=== PATIENT | male | born 1965 | race Caucasian/White ===

== ENCOUNTER 2020-02-17 09:45 | Emergency (ER) | payer OTHER, BC, SELFPAY ==
--- NOTE | ~2020-02-17 | XR_ITS ---
XR knee RT 3V 02/17/2020 11:21 Indication: Right knee pain after twisting injury Procedure: 3 views right knee Comparison: No prior studies for comparison. Findings: There is moderate tricompartmental osteoarthritis of the right knee, most advanced in the m edial joint space. No fracture or traumatic malalignment. No significant joint effusion. No foreign b odies. Impression: 1: Moderate osteoarthritis of the right knee. Reviewed, dictated and finalized at location A. Impression: 1: Moderate osteoarthritis of the right knee.
[2020-02-17 09:57] VITALS: BP 150/86; PULSE 90; RESP 18; TEMP 36.9; O2SAT 99
--- NOTE | 2020-02-17 11:03 | ED.LOWEXIN ---
HPI - Extremity Injury (Lower) General Chief Complaint: Extremity Injury, Lower Stated Complaint: knee injury Time Seen by Provider: 02/17/20 11:01 Source: patient Mode of arrival: ambulatory Limitations: no limitations History of Present Illness HPI Narrative: Patient is a 54-year-old male who presents for evaluation of right knee pain. Patient states that he was picking up a heavy box with ceramic toilets inside of it when he felt acute pain on the inside of his right knee. Pain is dull, aching in nature, worsened with extension. No associated swelling, redness. No numbness. Patient has been ambulatory. Patient states he did not fall. He believes he has a history of meniscal injury in that right knee which is been followed with Dr. Green in the past. Related Data Allergies Allergy/AdvReac Type Severity Reaction Status Date / Time No Known Allergies Allergy Verified 12/04/19 13:30 Review of Systems Review of Systems: Narrative: CONSTITUTIONAL: Denies fever CARDIOVASCULAR: Denies chest pain RESPIRATORY: Denies cough or dyspnea. GASTROINTESTINAL: Denies abdominal pain SKIN: Denies rash MUSCULOSKELETAL: Denies back pain, reports right knee pain NEUROLOGIC: Denies headache [facility] Past Medical History Medical History Annual physical exam Essential (primary) hypertension Lung disease Nocturia Surgical History Surgical History H/O: knee surgery History of laparoscopic cholecystectomy Social History Social History Smoking status: Former smoker Smoking end date: 05/27/93 Alcohol intake: never Substance use: never Substance use type: does not use Gender identity (if verbalized by the patient): Male Exam Narrative: Exam Narrative: GENERAL: Awake, alert, conversant HEAD: Normocephalic, atraumatic. EYES: PERRLA and EOMI. ENT: Nares clear, no rhinorrhea or epistaxis. Mucous membranes moist. NECK: Supple. CHEST: No respiratory distress, breathing even and non labored HEART: Regular rate, sinus rhythm ABDOMEN:Non distended, non tender EXTREMITIES: Normal range of motion. No edema. Patient is able to fully flex and extend the knee without limitation. No effusion identified although body habitus does make evaluation difficult. There is tenderness along the medial aspect of the left knee. No lateral tenderness. No instability. Full range of motion of the ankle without pain or limitation. Intact distal sensation. No edema. Capillary refill less than 3 seconds. SKIN: Warm, dry, no rash. NEURO:No focal deficits. Alert and oriented x3 Course Vital Signs Vital signs: Vital Signs Temperature 36.9 C 02/17/20 09:57 Pulse Rate 90 02/17/20 09:57 Respiratory Rate 18 02/17/20 09:57 Blood Pressure 150/86 H 02/17/20 09:57 Pulse Oximetry 99 02/17/20 09:57 Temperature 36.9 C 02/17/20 09:57 Pulse Rate 90 02/17/20 09:57 Respiratory Rate 18 02/17/20 09:57 Blood Pressure 150/86 H 02/17/20 09:57 Pulse Oximetry 99 02/17/20 09:57 MDM - Extremity Injury (Lower) MDM Narrative Medical decision making narrative: Patient presented for evaluation of right knee pain following lifting a heavy object. At the time of assessment, patient is neurovascularly intact without signs of deformity. He has good active range of motion without limitation. He is ambulatory. No sign of infection with good range of motion, no erythema, no edema. X-ray reveals osteoarthritis but I do suspect a ligamentous injury. Will advise close follow-up with orthopedic surgery, he wishes to continue following with Dr. Green. Differential Diagnosis Differential diagnosis: Likely other (Knee strain, fracture, soft tissue injury) Medical Records Attestation: I reviewed the patient's medical records. Imaging Data Radiologist's impression: ITS Impres
[2020-02-17 12:24] VITALS: BP 138/72; PULSE 78; RESP 20; O2SAT 99
== END 2020-02-17 12:25 | disposition home or self-care (01) ==
PROVIDERS: Emergency Provider Emergency Medicine; PCP Family Medicine
DX: S86.911A Strain of unspecified muscle(s) and tendon(s) at lower leg level, right leg, initial encounter (principal); I10 Essential (primary) hypertension; X50.0XXA Overexertion from strenuous movement or load, initial encounter
CPT/HCPCS: 73562; 99283

== ENCOUNTER 2020-06-16 07:53 | Emergency (ER) | payer BC, SELFPAY ==
[2020-06-16] VITALS (8 sets, daily range): BP systolic 129–181; BP diastolic 64–113; PULSE 79–101; RESP 16–24; TEMP 35.9; O2SAT 94–100
--- NOTE | ~2020-06-16 | CT_ITS ---
EXAMINATION: CT brain wo con EXAM DATE: 06/16/2020 08:44 INDICATION: Syncope. TECHNIQUE: Spiral CT of the head was performed without contrast. Axial, coronal and sagittal images were reviewed. The dose-length product (DLP) for this examination was 605.33 mGy-cm. The exposure w as tailored according to patient size, and iterative reconstruction (ASIR) was used as additional dos e reduction technique. There is no prior study for comparison. FINDINGS: There is no acute intraparenchymal hemorrhage. No evidence of intraparenchymal brain mass lesion. No evidence of acute infarction. There is no mass effect or midline shift. The ventricles are normal in size. There are no extra-axial collections. There are no acute calvarial fractures. T he orbits are unremarkable. Soft tissue is unremarkable. The visualized sinuses and mastoid air jorge ls are well aerated. IMPRESSION: 1. No acute intracranial findings. Reviewed, dictated and finalized at location A. ARDER OPERATOR
--- NOTE | ~2020-06-16 | XR_ITS ---
EXAMINATION: XR shoulder LT min 2V EXAM DATE: 06/16/2020 08:51 INDICATION: Initial encounter following injury, with pain of the left shoulder. TECHNIQUE: The following left shoulder projections obtained: frontal projection with internal rotatio n, frontal projection with external rotation, Grashey, and scapular Y view (4+ views). There is no p rior study for comparison. FINDINGS: No evidence of left shoulder rotator cuff calcific tendinosis. There is mild glenohumeral and acromioclavicular joint primary osteoarthritis. There are no acute fractures or dislocations susana ntified. There is no subcutaneous gas. The soft tissue is unremarkable. There are no radiopaque f oreign bodies. IMPRESSION: 1. XR shoulder LT min 2V exam without acute osseous findings. Reviewed, dictated and finalized at location A. PRESIDENT AND PORTFOLIO MANAGER
--- NOTE | ~2020-06-16 | XR_ITS ---
EXAMINATION: XR chest 1V DATE: 06/16/2020 08:51 INDICATION: Syncope. TECHNIQUE: A single frontal view of the chest was obtained. COMPARISON: Chest 2 views 08/06/2018, chest CT 08/31/2013 FINDINGS: The chest demonstrates clear lungs without pneumonia, pleural effusion, or pneumothorax. Th e heart size is normal. IMPRESSION: 1. No acute cardiopulmonary disease. Reviewed, dictated and finalized at location B. NESS ANALYTICS ANALYST
--- NOTE | ~2020-06-16 | XR_ITS ---
EXAMINATION: XR ankle LT min 3V DATE: 06/16/2020 08:51 INDICATION: Left ankle pain post fall TECHNIQUE: Anteroposterior, oblique, mortise, and lateral views of the left ankle were obtained. COMPARISON: None. FINDINGS: Bone alignment is normal. There is linear sclerosis projecting over the posterior calcaneus at locati on suspicious for a stress or insufficiency fracture. No other lesions suspicious for acute fracture. The profiled joint spaces are relatively preserved. Scattered enthesophytes at the calcaneal inserti on of the Achilles tendon and plantar aponeurosis as well as the dorsal navicular insertion of the ca lcaneonavicular ligament. Ovoid ossicle either loose osteochondral body or heterotopic ossification r elated to old injury dorsal to the neck of the talus. No ankle joint effusion. Soft tissue swelling w ith subcutaneous edema about the left ankle and distal left calf. IMPRESSION: 1. Linear sclerosis projecting across the plantar aspect of the posterior calcaneus. Differential wou ld include stress/insufficiency fracture or artifact related to enthesophyte reviewed and finalized. Correlate for heel pain with weightbearing. Reviewed, dictated and finalized at location A. FIC LINE PAINTER IMPRESSION: 1. Linear sclerosis projecting across the plantar aspect of the posterior calca neus. Differential would include stress/insufficiency fracture or artifact rela ajit to enthesophyte reviewed and finalized. Correlate for heel pain with weight bearing.
--- NOTE | ~2020-06-16 | CT_ITS ---
EXAMINATION: CT ankle LT wo con DATE: 06/16/2020 10:13 INDICATION: Left ankle pain. TECHNIQUE: Computed tomography (CT) of the left ankle was performed without intravenous contrast. Aut omated exposure control and iterative reconstruction technique were employed. The dose-length product was 315.21 mGy-cm. COMPARISON: Left ankle radiographs 06/16/2020 FINDINGS: Bone alignment is normal. There are chip fractures of anterior process of calcaneus. There is a nondisplaced chip fracture of lateral aspect of head of talus. There is mild osteoarthritis of t he ankle joint, subtalar joint, and many of the midfoot joints. There is a punctate calcification in the area of posterior talofibular ligament. There is moderate osteoarthritis of talonavicular joint. There are enthesophytes at the posterior and plantar aspects of calcaneal tuberosity. IMPRESSION: 1. Chip fractures of anterior process of calcaneus and lateral aspect of head of talus. 2. Polyarticular osteoarthritis. Reviewed, dictated and finalized at location B. R MAINTENANCE PERSON IMPRESSION: 1. Chip fractures of anterior process of calcaneus and lateral aspect of head o f talus. 2. Polyarticular osteoarthritis.
--- NOTE | 2020-06-16 08:13 | ECG_ITS ---
Measurements Intervals [place] Rate: 81 P: 22 MO: 153 QRS: -34 QRSD: 112 T: 21 QT: 357 QTc: 416 Interpretive Statements SINUS RHYTHM LEFT AXIS DEVIATION INTRAVENTRICULAR CONDUCTION DELAY BORDERLINE ECG Electronically Signed On 06-16-2020 8:29:38 MOTION PICTURE PROJECTIONIST by Galileo Barrios D.O.
[2020-06-16] MEDS: SODIUM CHLORIDE 0.9% IV 1,000 ML 999 ML IV CONT (08:28)
[2020-06-16 08:37] LABS: Basophils Percent Auto 0.4 % (0.2-1.2); Eosinophils Absolute Auto 0.1 K/mm3 (0-0.3); Eosinophils Percent Auto 1.3 % (0-4.4); Hematocrit 42.6 % (42.0-52.0); Hemoglobin 13.4 g/dL (14.0-18.0); Immature Granulocyte Absolute 0.07 K/mm3 (0.00-0.031); Immature Granulocyte Percent A 0.7 % (0-0.5); Lymphocytes Absolute Auto 0.94 K/mm3 (0.9-3.2); Mean Corpuscular HGB Conc 31.5 g/dl (32-36); Mean Corpuscular Hemoglobin 26.5 pg (26-34); Mean Corpuscular Volume 84.2 fl (80-100); Mean Platelet Volume 12.2 fl (7.4-10.4); Monocytes Absolute Auto 0.9 K/mm3 (0.1-0.6); Monocytes Percent Auto 8.5 % (2.6-8.5); Neutrophils Absolute Auto 8.3 K/mm3 (1.3-6.7); Neutrophils Percent Auto 80.1 % (45.5-73.1); Platelet Count Result 189 k/mm3 (150-375); Red Blood Count 5.06 M/mm3 (4.6-6.20); White Blood Count 10.4 K/mm3 (4.5-10.0)
[2020-06-16 08:48] LABS: Alanine Aminotransferase 29 U/L (4-50); Albumin Level 3.8 g/dL (3.5-5.1); Alkaline Phosphatase 99 U/L (38-126); Anion Gap 3 mmol/L (8-16); Aspartate Amino Transferase 28 U/L (17-59); Bilirubin,Total 0.5 mg/dL (0.2-1.3); Blood Urea Nitrogen 14 mg/dL (9-20); Calcium 8.7 mg/dL (8.4-10.2); Carbon Dioxide 33 mmol/L (22-30); Chloride 102 mmol/L (98-107); Estimated CRCL calculation 138 ml/min; Estimated Glomerular Filt Rate > 60; Glucose 108 mg/dL (75-110); Potassium 3.9 mmol/L (3.4-5.0); Sodium 138 mmol/L (137-145)
[2020-06-16 09:00] LABS: Troponin I < 0.012 ng/mL (0.000-0.034)
[2020-06-16 10:16] LABS: Add Urine Microscopic? NO; Appearance Urine Clear (Clear); Bacteria Urine Trace /hpf; Bilirubin Urine Negative (Negative); Blood Urine Negative (Negative); Color Urine Yellow (Yellow); Glucose Urine UA Negative (Negative); Ketones Urine Negative (Negative); Leukocyte Esterase Ur Negative LEU/UL (Negative); Mucus Urine Rare /lpf; Nitrate Urine Negative (Negative); Protein Urine Negative (Negative); RBC Urine 0-2 /hpf (0-2); Specific Grav Ur 1.015 (1.001-1.035); Squamous Epithelial Cell Urine Rare /hpf (Few); Urobilinogen Urine Negative mg/dL (<2.0); WBC Urine 0-3 /hpf
--- NOTE | 2020-06-16 10:58 | ED.GENADULT ---
HPI - General Adult General Chief complaint: Syncope Stated complaint: Passed Out At Work Time Seen by Provider: 06/16/20 08:00 History of Present Illness HPI narrative: Patient is a 55-year-old gentleman who presents emergency department with chief complaint of syncope. Patient was at work and went to the bathroom was sitting on the toilet having a bowel movement. States that while having a bowel movement the patient woke up on the floor after he had passed out. The patient reports head pain left shoulder pain and left ankle pain. Patient reports pain is worse with movement and improved with rest. complaint: Syncope Related Data Allergies Allergy/AdvReac Type Severity Reaction Status Date / Time No Known Allergies Allergy Verified 05/17/20 14:27 Review of Systems Review of Systems: Narrative: A 10 system review of systems was completed on the patient and is negative except for what is stated in the HPI. Nursing and ancillary documentation was reviewed. [facility] Past Medical History Medical History Acute medial meniscus tear of right knee Annual physical exam Arthritis of knee, right Asthma Essential (primary) hypertension Hypertension Lung disease Nocturia Obesity Right knee injury Urinary frequency Surgical History Surgical History H/O: knee surgery History of laparoscopic cholecystectomy Family History Family History Father Hypertension Mother Hypertension Social History Social History Smoking status: Former smoker Smoking end date: 05/27/94 Alcohol intake: never Substance use: never Substance use type: does not use Gender identity (if verbalized by the patient): Male Exam Narrative: Exam Narrative: GENERAL: Well-appearing, well-nourished, and in no acute distress. HEAD: Normocephalic, there is a contusion of the forehead. EYES: PERRLA and EOMI. ENT: Nares clear, no rhinorrhea or epistaxis. Mucous membranes moist. NECK: Supple. CHEST: Clear to auscultation. No respiratory distress. HEART: Regular rate and rhythm. No murmur heard. Normal peripheral pulses. ABDOMEN: Soft, nontender, nondistended, normal active bowel sounds. EXTREMITIES: Normal range of motion. No edema. There is tenderness to palpation in the left ankle and left shoulder SKIN: Warm, dry, no rash. NEURO: No focal deficits. Alert and oriented x3. PSYCH: Normal mood and affect. Course Course Emergency Course: CT head shows no evidence of acute abnormality. Chest x-ray shows no focal findings. Left shoulder is negative left ankle showed a possible avulsion fracture of the calcaneus. CT scan of the ankle and foot showed a avulsion of the calcaneus and talus. The patient will be placed in a splint and the patient will be discharged to follow-up with orthopedics. Vital Signs Vital signs: Vital Signs Temperature 35.9 C L 06/16/20 08:00 Pulse Rate 91 06/16/20 08:00 Respiratory Rate 16 06/16/20 08:00 Blood Pressure 181/82 H 06/16/20 08:00 Pulse Oximetry 100 06/16/20 08:00 Temperature 35.9 C L 06/16/20 08:00 Pulse Rate 87 06/16/20 09:33 Respiratory Rate 24 H 06/16/20 09:33 Blood Pressure 140/79 06/16/20 09:33 Pulse Oximetry 100 06/16/20 09:33 Medical Decision Making Vital Signs Vital Signs: Vital Signs Temperature 35.9 C L 06/16/20 08:00 Pulse Rate 91 06/16/20 08:00 Respiratory Rate 16 06/16/20 08:00 Blood Pressure 181/82 H 06/16/20 08:00 Pulse Oximetry 100 06/16/20 08:00 Temperature 35.9 C L 06/16/20 08:00 Pulse Rate 87 06/16/20 09:33 Respiratory Rate 24 H 06/16/20 09:33 Blood Pressure 140/79 06/16/20 09:33 Pulse Oximetry 100 06/16/20 09:33 Lab Data Result diagrams: 06/16/20 08:29
--- NOTE | 2020-06-23 08:08 | PC.NURSE ---
LATE ENTRY-AP LOMAS POSTERIOR SHORT LEG OCL PLACED TO L LEG ON 06/16/2020
== END 2020-06-16 13:01 | disposition home or self-care (01) ==
PROVIDERS: Emergency Provider Emergency Medicine; PCP Family Medicine
DX: R55 Syncope and collapse (principal); S92.022A Displaced fracture of anterior process of left calcaneus, initial encounter for closed fracture; S92.125A Nondisplaced fracture of body of left talus, initial encounter for closed fracture; M17.11 Unilateral primary osteoarthritis, right knee; J45.909 Unspecified asthma, uncomplicated; I10 Essential (primary) hypertension; E66.9 Obesity, unspecified; Z68.44 Body mass index [BMI] 60.0-69.9, adult; Z87.891 Personal history of nicotine dependence; M19.072 Primary osteoarthritis, left ankle and foot; I45.9 Conduction disorder, unspecified; W18.12XA Fall from or off toilet with subsequent striking against object, initial encounter
CPT/HCPCS: 29515; 36415; 70450; 71045; 73030; 73610; 73700; 80053; 81003; 82948; 84484; 85025; 93005; 96360; 96361; 99284; J7030

== ENCOUNTER 2020-06-17 10:06 | Emergency (ER) | payer BC, SELFPAY ==
[2020-06-17 10:10] VITALS: BP 165/76; PULSE 98; RESP 18; TEMP 36.7; O2SAT 100
--- NOTE | 2020-06-17 10:49 | ED.GENADULT ---
HPI - General Adult General Chief complaint: Unspecified Stated complaint: OCL Check Time Seen by Provider: 06/17/20 10:26 Source: patient Mode of arrival: ambulatory Limitations: no limitations History of Present Illness HPI narrative: This is a 55-year-old male that presents the emergency department for a new splint. Reports he was seen here yesterday and splint was placed on the left ankle. Reports he has been having trouble with the splint and wanted a new one. Per diagnostic radiologic technologist it looks like patient had spilled something on the splint and there was corn in the splint. It also looks like there may be was not enough padding in the splint. Patient has no other complaints. Denies fever or numbness. Related Data Allergies Allergy/AdvReac Type Severity Reaction Status Date / Time No Known Allergies Allergy Verified 06/17/20 10:35 Review of Systems Review of Systems: Narrative: CONSTITUTIONAL: Denies fever SKIN: Denies rash MUSCULOSKELETAL: Reports joint pain, and myalgia. NEUROLOGIC: Denies numbness All systems reviewed & are unremarkable except as noted in HPI and below PMFSH Past Medical History Medical History Acute medial meniscus tear of right knee Annual physical exam Arthritis of knee, right Asthma Essential (primary) hypertension Hypertension Lung disease Nocturia Obesity Right knee injury Urinary frequency Surgical History Surgical History H/O: knee surgery History of laparoscopic cholecystectomy Family History Family History Father Hypertension Mother Hypertension Social History Social History Smoking status: Former smoker Smoking end date: 05/27/94 Alcohol intake: never Substance use: never Substance use type: does not use Gender identity (if verbalized by the patient): Male Exam Narrative: Exam Narrative: GENERAL: Well-appearing, obese, and in no acute distress. HEAD: Normocephalic, atraumatic. EYES: EOMI. EXTREMITIES: Normal range of motion. No edema or obvious deformity. Normal DP pulses. Normal sensation SKIN: Warm, dry, no rash. NEURO: No focal deficits. Alert and oriented x3. PSYCH: Normal mood and affect Course Vital Signs Vital signs: Vital Signs Temperature 98.0 F 06/17/20 10:10 Pulse Rate 98 06/17/20 10:10 Respiratory Rate 18 06/17/20 10:10 Blood Pressure 165/76 H 06/17/20 10:10 Pulse Oximetry 100 06/17/20 10:10 Temperature 98.0 F 06/17/20 10:10 Pulse Rate 98 06/17/20 10:10 Respiratory Rate 18 06/17/20 10:10 Blood Pressure 165/76 H 06/17/20 10:10 Pulse Oximetry 100 06/17/20 10:10 Procedures Orthopedic Splinting/Casting Injury #1: Splinting/Casting Date: 06/17/20 Splinting/Casting Time: 11:41 Side: left Lower Extremity Injury Location: ankle Lower Extremity Immobilizer: posterior splint Splint: customized in ED OCL: posterior Pre-Procedure Neuro Vascular Exam: normal Post-Procedure Neuro Vascular Exam: normal Other Orthopedic Equipment: crutches Medical Decision Making MDM Narrative Medical decision making narrative: Patient presents to the emergency department to have his splint replaced. Patient apparently had not taken well care of it, did have food in it and a spill noted on it. Also per diagnostic radiologic technologist did look like it needed more padding. Splint was replaced and patient reports it feels much better now. Normal postplacement neurovascular exam. He is to follow-up with orthopedics as scheduled Vital Signs Vital Signs: Vital Signs Temperature 98.0 F 06/17/20 10:10 Pulse Rate 98 06/17/20 10:10 Respiratory Rate 18 06/17/20 10:10 Blood Pressure 165/76 H 06/17/20 10:10 Pulse Oximetry 100 06/17/20 10:10 Temperature 98.0 F 05/28
== END 2020-06-17 12:01 | disposition home or self-care (01) ==
PROVIDERS: Emergency Provider Emergency Medicine; PCP Family Medicine
DX: S92.902D Unspecified fracture of left foot, subsequent encounter for fracture with routine healing (principal); M17.11 Unilateral primary osteoarthritis, right knee; I10 Essential (primary) hypertension; J45.909 Unspecified asthma, uncomplicated; E66.9 Obesity, unspecified; Z68.44 Body mass index [BMI] 60.0-69.9, adult; X58.XXXD Exposure to other specified factors, subsequent encounter
CPT/HCPCS: 29515; 99282

== ENCOUNTER 2022-01-29 10:25 | Emergency (ER) | payer BC, SELFPAY ==
--- NOTE | ~2022-01-29 | CT_ITS ---
EXAMINATION: CT abdomen pelvis w con DATE: 01/29/2022 12:18 INDICATION: Low abdominal pain. Nausea and vomiting. TECHNIQUE: Computed tomography (CT) of the abdomen and pelvis was performed with 100 mL Omnipaque 350 intravenous contrast. Automated exposure control and iterative reconstruction technique were employe d. The dose-length product was 1541.70 mGy-cm. COMPARISON: CT abdomen 12/18/2004 FINDINGS: The visualized portions of the lung bases demonstrate minimal atelectasis. No pleural effus ion. The heart size is normal. No pericardial effusion. The liver and gallbladder are normal. There a re changes of cholecystectomy. The pancreas, adrenal glands, and left kidney are normal. There is a 6 .9 cm cyst in right kidney. The appendix is not visualized. There is an umbilical hernia containing s mall bowel. There is mild fat stranding in the hernia, consistent with inflammation versus scarring. Small bowel is mildly dilated proximal to the hernia. There are no pathologically enlarged lymph node s. There is no free intraperitoneal fluid. There is moderate lumbar spondylosis. IMPRESSION: 1. Umbilical hernia containing small bowel with partial small bowel obstruction. Reviewed, dictated and finalized at location A. IMPRESSION: 1. Umbilical hernia containing small bowel with partial small bowel obstruction .
[2022-01-29 10:32] VITALS: BP 134/92; PULSE 98; RESP 16; TEMP 36.5; O2SAT 99
[2022-01-29 11:00] LABS: Basophils Absolute Auto 0.1 K/mm3 (0.0-0.1); Basophils Percent Auto 0.7 % (0.2-1.2); Eosinophils Absolute Auto 0.1 K/mm3 (0-0.3); Eosinophils Percent Auto 0.6 % (0-4.4); Hematocrit 51.7 % (42.0-52.0); Hemoglobin 16.3 g/dL (14.0-18.0); Immature Granulocyte Absolute 0.05 K/mm3 (0.00-0.031); Immature Granulocyte Percent A 0.4 % (0-0.5); Lymphocytes Absolute Auto 1.87 K/mm3 (0.9-3.2); Lymphocytes Percent Auto 15.4 % (18.3-44.2); Mean Corpuscular HGB Conc 31.5 g/dl (32-36); Mean Corpuscular Volume 85.7 fl (80-100); Mean Platelet Volume 11.7 fl (7.4-10.4); Monocytes Percent Auto 8.1 % (2.6-8.5); Neutrophils Absolute Auto 9.1 K/mm3 (1.3-6.7); Neutrophils Percent Auto 74.8 % (45.5-73.1); Platelet Count Result 241 k/mm3 (150-375); Red Blood Count 6.03 M/mm3 (4.6-6.20); Red Cell Distribution Width 17.9 % (11.5-14.5); White Blood Count 12.1 K/mm3 (4.5-10.0)
--- NOTE | 2022-01-29 11:08 | PC.NURSE ---
Pt unable to provide u/a at this time, will continue to try. Given urinal and call light. Declined straight cath.
[2022-01-29 11:27] LABS: Alanine Aminotransferase 31 U/L (6-50); Albumin Level 4.3 g/dL (3.5-5.1); Alkaline Phosphatase 98 U/L (38-126); Anion Gap 12 mmol/L (8-16); Aspartate Amino Transferase 31 U/L (17-59); Bilirubin,Total 0.9 mg/dL (0.2-1.3); Blood Urea Nitrogen 13 mg/dL (9-20); Carbon Dioxide 22 mmol/L (22-30); Chloride 104 mmol/L (98-107); Estimated CRCL calculation 143 ml/min; Estimated Glomerular Filt Rate > 60; Glucose 141 mg/dL (65-110); Lipase 33 U/L (23-300); Potassium 4.1 mmol/L (3.4-5.0); Sodium 138 mmol/L (137-145)
[2022-01-29] MEDS: SODIUM CHLORIDE 0.9% IV 1,000 ML 999 ML IV CONT (11:51)
[2022-01-29] MEDS: ONDANSETRON INJ 4 MG/2 ML VIAL IV PUSH ×2 (11:53→14:18)
--- NOTE | 2022-01-29 12:47 | ED.ABDPAIN ---
HPI - Abdominal Pain General Chief Complaint: Abdominal Pain Stated Complaint: abd pain Time Seen by Provider: 01/29/22 10:40 Source: patient Mode of arrival: ambulatory Limitations: no limitations History of Present Illness HPI narrative: Patient is a 56-year-old male who presents the ED with report of mid abdominal pain. Patient reports a history of a chronic umbilical hernia and states he developed pain yesterday morning just above his umbilicus. Has not tried anything for pain. Reports nausea and some dry heaving, but no vomiting. Reports an episode of diarrhea yesterday, but has not had a bowel movement since then. No fever, urinary symptoms, back pain. Related Data Allergies Allergy/AdvReac Type Severity Reaction Status Date / Time No Known Allergies Allergy Verified 01/29/22 10:37 Review of Systems Review of Systems: CONSTITUTIONAL: Denies fever, chills, or sweats. CARDIOVASCULAR: Denies chest pain. RESPIRATORY: Denies dyspnea. GASTROINTESTINAL: Reports mid ABD pain, nausea w/ dry heaving, diarrhea. Denies vomiting, rectal bleeding. GENITOURINARY: Denies dysuria or hematuria. MUSCULOSKELETAL: Denies back pain. All systems reviewed & are unremarkable except as noted in HPI and below PMFSH Past Medical History Medical History Acute medial meniscus tear of right knee Annual physical exam Arthritis of knee, right Asthma Essential (primary) hypertension Hypertension Lung disease Nocturia Obesity Right knee injury Sprain of left foot Urinary frequency Surgical History Surgical History H/O: knee surgery History of laparoscopic cholecystectomy Family History Family History Father Hypertension Mother Hypertension Social History Social History Smoking status: Never smoker Smoking end date: 05/27/94 Alcohol intake: never Substance use: never Substance use type: does not use Gender identity (if verbalized by the patient): Male Exam Narrative: GENERAL: Well appearing, morbidly obese, non-toxic, in no acute distress. HEAD: Normocephalic, atraumatic. NECK: Supple. No adenopathy, no masses. RESPIRATORY: Airway patent, respirations nonlabored. Clear to auscultation bilaterally, no rales, rhonchi, wheezing. CARDIOVASCULAR: Regular rate and rhythm without murmurs, rubs, or gallops. Peripheral pulses 2+ and equal bilaterally. ABDOMINAL: Soft, mild tenderness to palpation in mid abdomen, just above umbilicus. Very large almost fist-size umbilical hernia, soft, no erythema or tenderness to palpation of hernia. Hernia sac able to reduce, but does pop back out. Seemingly able to reduce hernia contents, but unable to keep hernia sac reduced. No hepatosplenomegaly. Normoactive BS. MUSCULOSKELETAL: Moves all extremities. Strength/ROM intact without gross deformities. SKIN: Warm, dry, normal color. No rashes. NEURO: A&O X3. Speech clear. Cranial nerves II-XII grossly intact. Steady gait. No ataxic movements. PSYCHIATRIC: Appropriate mood and affect. Normal interaction. Course Consultations Consultation #1: Discussed case w/ Dr. Meneses in ED. D/c home w/ OP f/u. Date: 01/29/22 Vital Signs Vital signs: Vital Signs Temperature 97.7 F 01/29/22 10:32 Pulse Rate 98 01/29/22 10:32 Respiratory Rate 16 01/29/22 10:32 Blood Pressure 134/92 H 01/29/22 10:32 Pulse Oximetry 99 01/29/22 10:32 Temperature 97.7 F 01/29/22 10:32 Pulse Rate 95 01/29/22 14:33 Respiratory Rate 18 01/29/22 14:33 Blood Pressure 113/64 01/29/22 14:33 Pulse Oximetry 98 01/29/22 14:33 MDM - Abdominal Pain MDM Narrative Medical decision making narrative: Patient presented to ED with one day history of mid abdominal pain, history of large umbilical hernia. VSS. Patient w/ la
--- NOTE | 2022-01-29 13:10 | PM.CNGS ---
Assessment and Plan Assessment and plan (1) Incarcerated umbilical hernia: Code(s): K42.0 - Umbilical hernia with obstruction, without gangrene Status: Acute Assessment and Plan: reduced in ED today c immediate relief of symptoms, ok to dc home at this point c light activity restrictions, f/u 1-2 wks to setup urgent repair (2) Small bowel obstruction: Code(s): K56.609 - Unspecified intestinal obstruction, unspecified as to partial versus complete obstruction Status: Acute Assessment and Plan: see above (3) BMI 60.0-69.9, adult: Code(s): Z68.44 - Body mass index [BMI] 60.0-69.9, adult Status: Acute Assessment and Plan: dietary and lifestyle modifications History of Present Illness Consult details Consult date: 01/29/22 Reason for consult: abdominal pain Requesting physician: Maricarmen Dixon PA-C Narrative: The patient is a 56-year-old male presenting to the emergency department with severe periumbilical pain and nausea. The patient has a known umbilical hernia that has become quite large over time. The patient reports he was scheduled for repair at some point, however was told he needed to lose more weight. The patient reports he started getting pain in the periumbilical area yesterday. He reports that the area became hard and swollen. The patient reports some nausea and dry heaving. The patient did have some diarrhea yesterday. Workup, including imaging, is significant for incarcerated umbilical hernia with small bowel obstruction. Review of Systems Constitutional: Constitutional: Reports as per HPI, Denies anorexia, Reports body ache(s), Denies increased appetite, Denies lethargy, Reports poor appetite, Reports weakness, Denies weight gain and Denies weight loss Eyes: Eyes: Reports no additional eye complaints ENT: Reports system reviewed and no additional complaints, except as documented Cardiovascular: Cardiovascular: Reports no additional cardiovascular complaints Respiratory: Respiratory: Reports no additional respiratory complaints Gastrointestinal: Gastrointestinal: Reports as per HPI, Reports abdominal pain, Reports bloating, Reports change in bowel habits, Reports GI cramping, Reports diarrhea, Reports nausea and Denies vomiting Genitourinary: Genitourinary: Reports no additional male genitourinary complaints Musculoskeletal: Musculoskeletal: Reports no additional musculoskeletal complaints Integumentary/Breasts: Skin/Breast: Reports system reviewed and no additional complaints, except as docu Neurologic: Reports system reviewed and no additional complaints, except as documented Psychiatric: Psychiatric: Reports no additional psychiatric complaints Endocrine: Endocrine: Reports no additional endocrine complaints Hematologic/Lymphatic: Hematologic/Lymphatic: Reports no additional hematologic/lymphatic complaints Allergic/Immunologic: Allergic/Immunologic: Reports no additional allergic/immunologic complaints PMFSH Past Medical History Medical History Acute medial meniscus tear of right knee Annual physical exam Arthritis of knee, right Asthma Essential (primary) hypertension Hypertension Lung disease Nocturia Obesity Right knee injury Sprain of left foot Urinary frequency Surgical History Surgical History H/O: knee surgery History of laparoscopic cholecystectomy Family History Family History Father Hypertension Mother Hypertension Social History Social History Smoking status: Never smoker Smoking end date: 05/27/94 Alcohol intake: never Substance use: never Substance use type: does not use Gender identity (if verbalized by the patient): Male Meds Home Medications and Allergies Home Medications
[2022-01-29 13:34] LABS: Appearance Urine Clear (Clear); Bilirubin Urine Negative (Negative); Blood Urine Negative (Negative); Color Urine Yellow (Yellow); Glucose Urine UA Negative (Negative); Ketones Urine Negative (Negative); Leukocyte Esterase Ur Negative LEU/UL (Negative); Nitrate Urine Negative (Negative); Protein Urine Negative (Negative); Urobilinogen Urine 0.2 mg/dL (<2.0); pH Urine 5.5 (5.0-9.0)
[2022-01-29 13:44] LABS: Lactic Acid Reflex 2.1 mmol/L (0.7-2.0)
[2022-01-29 13:53] LABS: Add Urine Microscopic? NO
[2022-01-29] MEDS: MORPHINE SULFATE (*CRX) 4 MG/ML INJ IV PUSH (14:18)
[2022-01-29 14:33] VITALS: BP 113/64; PULSE 95; RESP 18; O2SAT 98
[2022-01-29 16:27] LABS: Reflex Lactic Acid Yes or No Add Lactic
== END 2022-01-29 14:50 | disposition home or self-care (01) ==
PROVIDERS: Physician Assistant; Emergency Provider Emergency Medicine; PCP Family Medicine
DX: K56.600 Partial intestinal obstruction, unspecified as to cause (principal); K42.9 Umbilical hernia without obstruction or gangrene; E66.9 Obesity, unspecified; Z68.44 Body mass index [BMI] 60.0-69.9, adult; J45.909 Unspecified asthma, uncomplicated; I10 Essential (primary) hypertension; J98.4 Other disorders of lung; M17.11 Unilateral primary osteoarthritis, right knee; Z87.891 Personal history of nicotine dependence
CPT/HCPCS: 36415; 74177; 80053; 81003; 83605; 83690; 85025; 96361; 96365; 96375; 96376; 99284; J0131; J2270; J2405; J7030; Q9967

== ENCOUNTER 2022-01-30 10:27 | Emergency (ER) | payer BC, SELFPAY ==
--- NOTE | ~2022-01-30 | CT_ITS ---
EXAMINATION: CT abdomen pelvis w con DATE: 01/30/2022 12:10 INDICATION: Hernia. Nausea and vomiting. TECHNIQUE: Computed tomography (CT) of the abdomen and pelvis was performed with 100 mL Omnipaque 350 intravenous contrast. Automated exposure control and iterative reconstruction technique were employe d. The dose-length product was 1746.03 mGy-cm. COMPARISON: CT abdomen and pelvis 01/29/2022 FINDINGS: The visualized portions of the lung bases demonstrate minimal atelectasis on the left. No p leural effusion. The heart size is normal. No pericardial effusion. There is a small sliding hernia. The liver and spleen are normal. There are changes of cholecystectomy. The pancreas, adrenal glands, and left kidney are normal. There is a 6.7 cm cyst in right kidney. There is an umbilical hernia cont aining small bowel. There is mild fat stranding associated with the hernia. Small bowel is dilated pr oximal to the hernia. The appendix is normal. There are no pathologically enlarged lymph nodes. There is no free intraperitoneal fluid. There is severe lumbar spondylosis. IMPRESSION: 1. Umbilical hernia containing small bowel with partial small bowel obstruction. Reviewed, dictated and finalized at location A. IMPRESSION: 1. Umbilical hernia containing small bowel with partial small bowel obstruction .
[2022-01-30 10:29] VITALS: BP 133/66; PULSE 97; RESP 20; TEMP 36.2; O2SAT 98
--- NOTE | 2022-01-30 11:10 | ED.GENADULT ---
HPI - General Adult General Chief complaint: Nausea/Vomiting/Diarrhea Stated complaint: hernia, vomiting Time Seen by Provider: 01/30/22 10:58 History of Present Illness HPI narrative: 56-year-old male presenting the emergency department for evaluation of increased abdominal pressure with associated nausea and vomiting. Patient did have an incarcerated hernia yesterday but this was reduced by surgery. Patient states he is going to have outpatient surgical repair of the hernia. Patient had been told that if he has worsening nausea he needed to present to the emergency department. Patient states he was having some nausea yesterday with the nausea worsened. Related Data Allergies Allergy/AdvReac Type Severity Reaction Status Date / Time No Known Allergies Allergy Verified 01/29/22 10:37 Review of Systems Review of Systems: CONSTITUTIONAL: Denies fever, chills, or sweats. EYES: Denies visual changes, redness, or discharge. ENT: Denies rhinorrhea, congestion, sore throat, or otalgia. CARDIOVASCULAR: Denies chest pain, palpitations, or edema. RESPIRATORY: Denies cough or dyspnea. GASTROINTESTINAL: See HPI GENITOURINARY: Denies dysuria or hematuria. SKIN: Denies rash or itching. MUSCULOSKELETAL: Denies back pain, joint pain, or myalgia. NEUROLOGIC: Denies headache, numbness, or weakness. PMFSH Past Medical History Medical History Acute medial meniscus tear of right knee Annual physical exam Arthritis of knee, right Asthma Essential (primary) hypertension Hypertension Lung disease Nocturia Obesity Right knee injury Sprain of left foot Urinary frequency Surgical History Surgical History H/O: knee surgery History of laparoscopic cholecystectomy Family History Family History Father Hypertension Mother Hypertension Social History Social History Smoking status: Never smoker Smoking end date: 05/27/94 Alcohol intake: never Substance use: never Substance use type: does not use Gender identity (if verbalized by the patient): Male Exam Narrative: APPEARANCE: Well appearing, no pain, no distress, well-nourished. HEAD: normocephalic, atraumatic. EYES: PERRLA/EOMI, conjunctivae clear. NOSE: Normal no drainage NECK: Supple. No adenopathy, no masses. RESPIRATORY: Airway patent, respirations nonlabored. Clear to auscultation bilaterally, no rales, rhonchi, wheezing. CARDIOVASCULAR: Regular rate and rhythm without murmurs rubs or gallops. ABDOMINAL: Reproducible umbilical wall hernia. Not incarcerated, no overlying erythema. Minimal tenderness to palpation. MUSCULOSKELETAL: Moves all extremities. Strength/ROM intact, No edema, No calf tenderness. NEURO: Alert. Cranial nerves II through XII intact. Grossly intact SKIN: Warm, dry. Normal Color Course Course Emergency Course: Patient's hernia is not incarcerated but does need constant pressure to stay reduced. CT results were discussed with Dr. Hanson who is on for surgery. He was comfortable with the plan for placement of an abdominal binder and patient still having close follow-up with surgery as outpatient. Hernia was reduced and stayed reduced with the presence of the abdominal wall binder. Patient states he did feel improved with the binder. Patient was updated on use of the binder at home and on the importance of close follow-up with surgery as outpatient. Patient was also educated on reasons to return to the emergency department. Vital Signs Vital signs: Vital Signs Temperature 97.2 F L 01/30/22 10:29 Pulse Rate 97 01/30/22 10:29 Respiratory Rate 20 01/30/22 10:29 Blood Pressure 133/66 01/30/22 10:29 Pulse Oximetry 98 01/30/22 10:29 Oxygen Delivery Room Air 01/30/22 10:29 Temperature 97.2 F L 09
[2022-01-30 11:18] LABS: Basophils Absolute Auto 0.1 K/mm3 (0.0-0.1); Basophils Percent Auto 0.4 % (0.2-1.2); Eosinophils Percent Auto 0.3 % (0-4.4); Hematocrit 48.6 % (42.0-52.0); Hemoglobin 15.2 g/dL (14.0-18.0); Immature Granulocyte Absolute 0.05 K/mm3 (0.00-0.031); Immature Granulocyte Percent A 0.4 % (0-0.5); Lymphocytes Absolute Auto 0.94 K/mm3 (0.9-3.2); Mean Corpuscular HGB Conc 31.3 g/dl (32-36); Mean Corpuscular Hemoglobin 26.6 pg (26-34); Mean Corpuscular Volume 85.1 fl (80-100); Mean Platelet Volume 11.5 fl (7.4-10.4); Monocytes Absolute Auto 1.1 K/mm3 (0.1-0.6); Neutrophils Absolute Auto 9.6 K/mm3 (1.3-6.7); Neutrophils Percent Auto 81.9 % (45.5-73.1); Platelet Count Result 200 k/mm3 (150-375); Red Blood Count 5.71 M/mm3 (4.6-6.20); Red Cell Distribution Width 18.1 % (11.5-14.5); White Blood Count 11.8 K/mm3 (4.5-10.0)
[2022-01-30 11:28] LABS: Alanine Aminotransferase 25 U/L (6-50); Albumin Level 4.3 g/dL (3.5-5.1); Alkaline Phosphatase 104 U/L (38-126); Anion Gap 16 mmol/L (8-16); Aspartate Amino Transferase 23 U/L (17-59); Bilirubin,Total 0.8 mg/dL (0.2-1.3); Blood Urea Nitrogen 14 mg/dL (9-20); Carbon Dioxide 25 mmol/L (22-30); Chloride 98 mmol/L (98-107); Estimated CRCL calculation 159 ml/min; Estimated Glomerular Filt Rate > 60; Glucose 142 mg/dL (65-110); Lipase 27 U/L (23-300); Sodium 139 mmol/L (137-145)
--- NOTE | 2022-01-30 11:45 | PC.NURSE ---
Patient in radiology
[2022-01-30] MEDS: ONDANSETRON INJ 4 MG/2 ML VIAL IV PUSH ×2 (12:34→13:52)
[2022-01-30 12:45] VITALS: BP 112/79; PULSE 89; RESP 18; O2SAT 98
[2022-01-30 12:52] LABS: Lactic Acid Reflex 2.4 mmol/L (0.7-2.0)
[2022-01-30 15:35] LABS: Reflex Lactic Acid Yes or No Add Lactic
== END 2022-01-30 14:08 | disposition home or self-care (01) ==
PROVIDERS: Emergency Provider Emergency Medicine; PCP Family Medicine
DX: K42.9 Umbilical hernia without obstruction or gangrene (principal); I10 Essential (primary) hypertension; J45.909 Unspecified asthma, uncomplicated; J98.4 Other disorders of lung; M17.11 Unilateral primary osteoarthritis, right knee; Z87.891 Personal history of nicotine dependence
CPT/HCPCS: 36415; 74177; 80053; 83605; 83690; 85025; 96374; 96375; 99284; J2405; Q9967

== ENCOUNTER 2022-02-23 08:02 | Outpatient (CLI) | payer BC, SELFPAY ==
--- NOTE | 2022-02-23 08:07 | ECG_ITS ---
Measurements Intervals [place] Rate: 88 P: MI: 0 QRS: -19 QRSD: 100 T: 5 QT: 390 QTc: 472 Interpretive Statements SINUS RHYTHM VENTRICULAR PREMATURE COMPLEX AND FREQUENT ATRIAL PREMATURE COMPLEXES LOW QRS VOLTAGE IN PRECORDIAL LEADS BORDERLINE T WAVE ABNORMALITY- INFERIOR LEADS BASELINE ARTIFACT- I, III, AVR, AVL, AVF, V4-V6 ABNORMAL ECG COMPARED TO ECG 06/16/2020 08:08:11 VENTRICULAR PREMATURE COMPLEX AND FREQUENT ATRIAL PREMATURE COMPLEXES NOW PRESENT Electronically Signed On 02-23-2022 9:50:31 CDT by Galileo Barrios D.O.
== END 2022-02-23 08:03 | disposition home or self-care (01) ==
PROVIDERS: PCP Family Medicine; Visit Provider Surgery
DX: Z01.818 Encounter for other preprocedural examination (principal); I10 Essential (primary) hypertension; K42.9 Umbilical hernia without obstruction or gangrene; R94.31 Abnormal electrocardiogram [ECG] [EKG]
CPT/HCPCS: 36415; 86850; 86900; 86901; 93005

== ENCOUNTER 2022-03-29 08:24 | Outpatient (CLI) | payer BC, SELFPAY ==
--- NOTE | 2022-03-29 08:35 | EST_ITS ---
Patient Info Name: Saran Pretty Age: 57 years : 1965 Gender: Male Ht: 69 in Wt: 450 lbs BSA: 3.29 m2 HR: 78 bpm BP: 121 / 82 mmHg Heart Rhythm: Sinus Rhythm Exam Date: 03/29/2022 10:47 AM Exam Location: [facility] Stress Patient Status: Outpatient Admit Date: 03/29/2022 Staff Ordering Physician: Galileo Barrios DO Attending Provider: Galileo Barrios DO Exercise Technologist: Peg Llanes CT Exercise Physician: Galileo Barrios DO Exam Type: CA stress test treadmill Study Info Indications Z01.810 - Encounter for preprocedural cardiovascular examination R06.00 - Dyspnea, unspecified A treadmill exercise stress test was performed. Summary 1. 1. Negative Gagandeep exercise stress test for ischemic ST changes by ECG criteria. 2. 2. Poor functional capacity, achieving 4.7 METs of workload. 3. 3. Baseline hypertension with hypertensive response to exercise. 4. 4. Appropriate HR response to exercise. 5. 4. Appropriate HR recovery at 1 minute post exercise. 6. 5. No imaging with stress testing. 7. 6. Patient informed of the above results. Protocol: Gagandeep Stress ECG Details Stage: REST Duration (min): 3 min : 29 sec Speed (mph): 0.0 Grade (%): 0 HR (bpm): 79 SBP (mmHg): 170 DBP (mmHg): 51 METS: --- Stage: REST Duration (min): 8 min : 49 sec Speed (mph): 0.0 Grade (%): 0 HR (bpm): 85 SBP (mmHg): 170 DBP (mmHg): 51 METS: --- Stage: STAGE 1 Duration (min): 1 min : 0 sec Speed (mph): 1.7 Grade (%): 10 HR (bpm): 130 SBP (mmHg): 170 DBP (mmHg): 51 METS: --- Stage: STAGE 1 Duration (min): 2 min : 0 sec Speed (mph): 1.7 Grade (%): 10 HR (bpm): 138 SBP (mmHg): 170 DBP (mmHg): 51 METS: --- Stage: STAGE 1 Duration (min): 2 min : 56 sec Speed (mph): 1.7 Grade (%): 10 HR (bpm): 146 SBP (mmHg): 249 DBP (mmHg): 49 METS: --- Stage: RECOVERY Duration (min): 0 min : 4 sec Speed (mph): 1.5 Grade (%): 0 HR (bpm): 138 SBP (mmHg): 249 DBP (mmHg): 49 METS: --- Stage: RECOVERY Duration (min): 1 min : 4 sec Speed (mph): 0.0 Grade (%): 0 HR (bpm): 130 SBP (mmHg): 249 DBP (mmHg): 49 METS: --- Stage: RECOVERY Duration (min): 2 min : 4 sec Speed (mph): 0.0 Grade (%): 0 HR (bpm): 106 SBP (mmHg): 249 DBP (mmHg): 49 METS: --- Stage: RECOVERY Duration (min): 3 min : 4 sec Speed (mph): 0.0 Grade (%): 0 HR (bpm): 98 SBP (mmHg): 246 DBP (mmHg): 57 METS: --- Stage: RECOVERY Duration (min): 4 min : 4 sec Speed (mph): 0.0 Grade (%): 0 HR (bpm): 98 SBP (mmHg): 246 DBP (mmHg): 57 METS: --- Stage: RECOVERY Duration (min): 5 min : 4 sec Speed (mph): 0.0 Grade (%): 0 HR (bpm): 97 SBP (mmHg): 259 DBP (mmHg): 140 METS: --- Stage: RECOVERY Duration (min): 6 min : 4 sec Speed (mph): 0.0
[2022-03-29] MEDS: PERFLUTREN LIPID MICROSPHERES 1.5 ML VIAL DILUTED TO 10 ML TOTAL VOLUME IV PUSH (10:10)
--- NOTE | 2022-03-29 10:12 | ECHO_ITS ---
Patient Info Name: Saran Pretty Age: 57 years : 1965 Gender: Male Ht: 69 in Wt: 450 lbs BSA: 3.29 m2 HR: 78 bpm BP: 136 / 91 mmHg Technical Quality: Poor Exam Date: 03/29/2022 9:25 AM Exam Location: [facility] Patient Status: Outpatient Admit Date: 03/29/2022 Staff Ordering Physician: Galileo Barrios DO Non Destructive Testing Technician: Mayda England RDCS Attending Provider: Galileo Barrios DO Referring Physician: Denis HUSSEIN; Exam Type: CA echo dop color flow w con Study Info Indications - dyspnea Complete two-dimensional, color flow and Doppler transthoracic echocardiogram is performed with contrast to opacify the left ventricle and to improve the deliniation of the left ventricle endocardial borders. Contrast/Agitated Saline Contrast/Ag. Saline: Definity Amount: 3.00 ml Administered By: Mayda England [facility] Existing IV Access: No New IV Access: Right Site Condition: IV removed Reason for Poor Study: patient body habitus Summary 1. Technically suboptimal study due to poor sonographic images. 2. Definity contrast administered improved wall motion interpretation. 3. Left ventricular chamber dimension is normal. 4. Left ventricular systolic function is normal, estimated at 60-65%. 5. The left ventricular diastolic function is grade I diastolic dysfunction. 6. E/e' 8 is minimally elevated. 7. There is mild aortic valve sclerosis. 8. No pulmonary hypertension, estimated pulmonary arterial systolic pressure is 38 mmHg. Left Ventricle Technically suboptimal study due to poor sonographic images. Definity contrast administered improved wall motion interpretation. E/e' 8 is minimally elevated. Left ventricular chamber dimension is normal. Left ventricular systolic function is normal, estimated at 60-65%. The left ventricular diastolic function is grade I diastolic dysfunction. Right Ventricle Right ventricular chamber dimension is not well visualized. Left Atria Left atrial chamber dimension is normal. Right Atria Right atrial chamber dimension is not well visualized. Aortic Valve The aortic valve is trileaflet. There is mild aortic valve sclerosis. There is no aortic valve stenosis. There is no aortic valve regurgitation. Pulmonic Valve There is no pulmonic regurgitation. Mitral Valve There is no mitral valve stenosis. There is no mitral valve regurgitation. Tricuspid Valve There is no tricuspid valve regurgitation. No pulmonary hypertension, estimated pulmonary arterial systolic pressure is 38 mmHg. Pericardium/Pleural There is no pericardial effusion. Inferior Vena Cava Inferior vena cava is not well visualized. Aorta The aortic root size at the sinus of Valsalva is normal. Left Ventricular Outflow Tract Name Value Normal LVOT 2D LVOT Diameter 2.16 cm LVOT Doppler LVOT Peak Gradient 5 mmHg LVOT Mean Gradient 3 mmHg LVOT VTI 20.65 cm LVOT VTI/AV VTI Ratio 0.64 LVOT Stroke Volum
== END 2022-03-29 08:25 | disposition home or self-care (01) ==
LOC: ANHCARD 08:25
PROVIDERS: PCP Family Medicine; Visit Provider Internal Medicine Cardiovascular Disease
DX: R06.09 Other forms of dyspnea (principal); I35.8 Other nonrheumatic aortic valve disorders
CPT/HCPCS: 93017; C8929; Q9957

== ENCOUNTER 2022-04-30 08:59 | Outpatient (CLI) | payer BC, SELFPAY ==
[2022-04-30 09:46] LABS: Anion Gap 6 mmol/L (8-16); Blood Urea Nitrogen 15 mg/dL (9-20); Calcium 8.4 mg/dL (8.4-10.2); Carbon Dioxide 26 mmol/L (22-30); Chloride 109 mmol/L (98-107); Estimated Glomerular Filt Rate > 60; Glucose 110 mg/dL (65-110); Potassium 4.1 mmol/L (3.4-5.0); Sodium 141 mmol/L (137-145)
== END 2022-04-30 09:00 | disposition home or self-care (01) ==
PROVIDERS: Anesthesiology; PCP Family Medicine; Visit Provider Surgery
DX: Z51.81 Encounter for therapeutic drug level monitoring (principal); Z79.899 Other long term (current) drug therapy; K42.0 Umbilical hernia with obstruction, without gangrene
CPT/HCPCS: 36415; 80048; 86850; 86900; 86901

== ENCOUNTER 2022-05-10 00:40 | Day surgery (SDC) | payer BC, SELFPAY ==
[2022-02-19 14:22] VITALS: BMI 64.7
--- NOTE | 2022-02-19 14:31 | PC.NURSE ---
Report to the Outpatient Waiting Room, entrance under the green pavilion located off [facility], at time 12:00 on date 02/26/22. OR Time: 2:00. Time changes happen often and if your time is changed the preop area will call you the afternoon before. - You and your visitor will be asked to self-screen and do not enter if you have any COVID symptoms. - Only one visitor and NO children visitors are allowed at this time. - The patient visitor is requested to leave or wait in car when not with patient due to restrictions. - A mask is required within the hospital. Patients may have clear liquids (water, carbonated beverages, clear teas, apple juice) until 3 hours prior to surgery (11:00) with a maximum of 20 ounces. - No food from midnight until time of surgery Take the following medications with a SIP of water the morning of surgery: NONE Medications to discontinue per physician: N/A Date to take last dose: N/A Please no make-up, nail azeri, hairspray, perfume, deodorant, or body powder the day of surgery. No jewelry (including any body piercings) or valuables the day of surgery, leave them at home. Please take a shower or bath the night before, or the morning of, surgery with an antibacterial soap (HIBICLENS). Wear comfortable, loose fitting clothing. - Jewelry must be removed prior to entering the operating room. Rings and piercings that are not removed may be cut off. - The hospital will not accept responsibility for valuables. - Please leave all valuables, including medications, at home the day of surgery. If you are going home after surgery, a licensed tow truck driver must drive you home. - NO public transportation without another adult. - We recommend that an adult stay with you for 24 hours following discharge. - We also recommend that you do not drive, make important decision, drink alcoholic beverages, or take any drugs that were not prescribed by your health care provider for at least 24 hours after your discharge time. Follow any additional instructions given to you from your surgeon. If you or anyone in your household have experienced Covid symptoms in the past week, please notify your surgeon or the nurse liaison at the phone number below for possible testing. Telephone instructions given to PT - ANIYAH VILLAGOMEZ and asked if any additional questions and then verbalized understanding. Patient advised to call surgeon office or pre surgery nurse liaison [phone] if any additional questions.
--- NOTE | 2022-04-26 13:09 | PC.NURSE ---
PRE-OP INSTRUCTIONS, PLEASE READ CAREFULLY Report to the Outpatient Waiting Room, entrance under the green pavilion located off [facility], at time _1000_ on date _05/10/22_. Planned Procedure Time: _1200_. Time changes happen often and if your time is changed the preop area will call you the afternoon before. - You and your visitor will be asked to self-screen and do not enter if you have any COVID symptoms. - Only one visitor is requested with a max of two and NO children visitors are allowed at this time. - The patient visitor may be requested to leave or wait in car when not with patient due to distancing restrictions. - A mask is optional within the hospital. Patients may have clear liquids (water, carbonated beverages, clear teas, apple juice) until 3 hours prior to surgery (0900 AM) with a maximum of 20 ounces. - No food from midnight until time of surgery Take the following medications with a SIP of water the morning of surgery: NONE Medications to discontinue per physician __N/A__, Date to take last dose Please no make-up, nail tuvaluan, hairspray, perfume, deodorant, or body powder the day of surgery. No jewelry (including any body piercings) or valuables the day of surgery, leave them at home. Please take a shower or bath the night before, or the morning of, surgery with an antibacterial soap. Wear comfortable, loose fitting clothing. - Jewelry must be removed prior to entering the operating room. Rings and piercings that are not removed may be cut off. - The hospital will not accept responsibility for valuables. - Please leave all valuables, including medications, at home the day of surgery. If you are going home after surgery, a licensed services delivery driver must drive you home. - NO public transportation without another adult if you receive anesthesia. - We recommend that an adult stay with you for 24 hours following discharge. - We also recommend that you do not drive, make important decision, drink alcoholic beverages, or take any drugs that were not prescribed by your health care provider for at least 24 hours after your discharge time. Follow any additional instructions given to you from your surgeon. SILVINA SHOWER AM OF SURGERY If you or anyone in your household have experienced Covid symptoms in the past week, please notify your surgeon or the nurse liaison at the phone number below for possible testing. Telephone instructions given to ___PT and asked if any additional questions and then verbalized understanding. Patient advised to call surgeon office or pre surgery nurse liaison [phone] if any additional questions.
[2022-04-26 13:12] VITALS: BMI 64.7
[2022-05-10] VITALS (17 sets, daily range): BP systolic 116–174; BP diastolic 65–99; PULSE 61–92; RESP 16–20; TEMP 36.1–36.9; O2SAT 90–100; BMI 67.1
[2022-05-10] MEDS: ACETAMINOPHEN 500 MG TABLET 1000 MG PO (10:36)
[2022-05-10] MEDS: LACTATED RINGERS 1,000 ML 30 ML IV CONT ×2 (10:45→15:17)
[2022-05-10] MEDS: KETOROLAC 15 MG/ML VIAL (*BKC) IV PUSH (10:48)
--- NOTE | 2022-05-10 10:49 | SUR.PREOP ---
1049 noted reddened area to panus inflamed no drainage. pt states applies ointment at times.
--- NOTE | 2022-05-10 11:04 | WPDHPUPDATE1 ---
History and Physical Update Update Date/Time: 05/10/22 11:04 History and Physical has been reviewed, including an updated exam of the patient. There are NO changes in the patient's condition. Risks, benefits, and alternatives have been discussed and questions answered. Patient agrees to proceed with procedure.
--- NOTE | 2022-05-10 11:05 | WPDANESEPPF ---
Anes - Initial Pre Proc Eval Procedure: Operation Date: 05/10/22 12:00 Proposed Procedures p Robotic Assisted Incarcerated Umbilical Hernia Repair with Mesh - Ana Meneses MD Date/Time: 05/10/22 11:05 Surgeon: Ana Meneses MD Pre Op Diagnosis: incarc umbilical hernia Patient Data Age: 57 Gender: M Height: 1.77 m Weight: 206 kg Last Vital Signs Temp 98.4 F 05/10/22 10:14 Pulse 82 05/10/22 10:14 Resp 16 05/10/22 10:14 BP 174/86 H 05/10/22 10:14 Pulse Ox 98 05/10/22 10:14 O2 Del Method Room Air 05/10/22 10:14 Allergies Allergy/AdvReac Type Severity Reaction Status Date / Time No Known Allergies Allergy Verified 05/10/22 10:32 Home Medications Medication Instructions Recorded Confirmed Type hydrochlorothiazide 12.5 mg tablet 12.5 mg PO DAILY #90 tabs 05/07/22 05/10/22 Rx lisinopril 40 mg tablet 40 mg PO DAILY #90 tabs 05/10/22 05/10/22 Rx Patient hx anesthesia problems: none Family hx anesthesia problems: none Results Review: All pre-operative results and documents have been reviewed as part of the pre-operative evaluation. [facility] Past Medical History Medical History Acute medial meniscus tear of right knee Annual physical exam Arthritis of knee, right Asthma Essential (primary) hypertension Hypertension Lung disease Nocturia Obesity Right knee injury Sprain of left foot Urinary frequency Surgical History Surgical History H/O: knee surgery History of laparoscopic cholecystectomy Family History Family History Father Hypertension Mother Hypertension Social History Social History Smoking packs per day: 1 Smoking cigarettes per day: 20.0 Years smoked: 3 Smoking pack-years: 3.00 Smoking status: Former smoker Tobacco type: cigarettes Smoking end date: 05/27/94 Alcohol intake: never Substance use: never Substance use type: does not use Living arrangements: with family Gender identity (if verbalized by the patient): Male Spiritual care concerns: No Anes - Eval Final PreProcedure Day of Procedure 05/10/22 11:05 Patient weight: super morbidly obese (super super morbidly obesity) Heart: regular rate and rhythm Lungs: clear to auscultation Airway: Mallampati scale class IV Neurological: alert and oriented Last oral intake: >/= 8 hours ASA classification: IV Emergent: no Anesthetic plan: proceed Anesthesia type and monitoring: general ETT (have glidescope availabe for intubation) and standard monitoring Results Review: All pre-operative results and documents have been reviewed as part of the pre-operative evaluation. I explained to the patient the possibility of cancelling the procedure if we had problems securing the airway and even ventilating after establishing an airway. Spoke with Dr Meneses as well and he understands as well potential for ventilation problems. . Informed Consent: The patient's anesthetic plan and its attendant risks and benefits were discussed with the patient/family/POA. Questions were solicited and answers provided to the satisfaction of the patient/family/POA.
--- NOTE | 2022-05-10 11:05 | PM.IMHP ---
H&P: HPI History of Present Illness Date/Time: 05/10/22 11:05 Chief Complaint: incarcerated umbilical hernia Narrative: Saran is a 56 y/o male who presents to the office following recent ED evalatuion for an umbilical hernia. Patient had presented to [facility] ED on 01/29/22 for evaluation abdominal pain. Patient was found to have an incarcerated hernia which was reduced while in the ED. Patient returns on 01/30/22 with complaints of increased abdominal pressure with associated nausea and vomiting.?Patient was given an abdominal binder and Zofran for nausea. CT abd/pelvis w contrast on 01/30/22 revealed an umbilical hernia containing small bowel with partial small bowel obstruction. Patient states he is feeling much better since being in the ED, he is not experiencing anymore pain. Review of Systems Review of Systems: All systems reviewed & are unremarkable except as noted in HPI and below PMFSH Past Medical History Medical History Acute medial meniscus tear of right knee Annual physical exam Arthritis of knee, right Asthma Essential (primary) hypertension Hypertension Lung disease Nocturia Obesity Right knee injury Sprain of left foot Urinary frequency Surgical History Surgical History H/O: knee surgery History of laparoscopic cholecystectomy Family History Family History Father Hypertension Mother Hypertension Social History Social History Smoking packs per day: 1 Smoking cigarettes per day: 20.0 Years smoked: 3 Smoking pack-years: 3.00 Smoking status: Former smoker Tobacco type: cigarettes Smoking end date: 05/27/94 Alcohol intake: never Substance use: never Substance use type: does not use Living arrangements: with family Gender identity (if verbalized by the patient): Male Spiritual care concerns: No Meds Home Medications and Allergies Home Medications Medication Instructions Recorded Confirmed Type hydrochlorothiazide 12.5 mg tablet 12.5 mg PO DAILY #90 tabs 05/07/22 05/10/22 Rx lisinopril 40 mg tablet 40 mg PO DAILY #90 tabs 05/10/22 05/10/22 Rx Allergies Allergy/AdvReac Type Severity Reaction Status Date / Time No Known Allergies Allergy Verified 05/10/22 10:32 Vital Signs Vital Signs - 24 hr 05/10/22 10:14 Temperature 36.9 C Pulse Rate 82 Respiratory Rate 16 Blood Pressure 174/86 H Pulse Oximetry 98 Oxygen Delivery Room Air Exam Const: General: cooperative, comfortable, no acute distress and obese Resp: Auscultation: clear to auscultation bilaterally Cardio: Rate: regular rate Rhythm: regular rhythm GI: Inspection: normal to inspection, distended and visible herniation GI Palp: Yes abdominal tenderness, Yes Soft to palpation, Yes Tenderness to palpation present (GI), No Guarding due to palpation present (GI), No Rigid due to palpation and Yes Hernia present Other: large incarcerated umbilical hernia Assessment and Plan Assessment and plan (1) Incarcerated umbilical hernia: Code(s): K42.0 - Umbilical hernia with obstruction, without gangrene Status: Acute Assessment and Plan: has been medically and cardiac cleared, will setup for robotic assisted repair c mesh
--- NOTE | 2022-05-10 12:13 | SUR.PREOP ---
1130 dr fox aware of redness to panus excoriated.
[2022-05-10] MEDS: ceFAZolin 3 GM/D5W 100 ML 100 ML IVPB (12:20)
[2022-05-10] MEDS: BUPIVACAINE/EPINEPHRINE 0.5% 10 ML VIAL 30 ML INFILTRATE (12:59)
--- NOTE | 2022-05-10 14:51 | P.OP_ITS ---
Procedure Note - Detailed Date of Procedure 05/10/22 Pre-op Diagnosis Incarcerated periumbilical incisional hernia Post-op Diagnosis Same Procedure Performed Robotic assisted repair incarcerated periumbilical incisional hernia with mesh Surgeon Ana Meneses MD Anesthesia General Indications 57-year-old male presenting with small-bowel obstruction secondary to incarcerated periumbilical incisional hernia. Patient initially was able to have reduction of hernia the and has been set up for interval repair at this time. Findings incarcerated periumbilical incisional hernia measuring approximately 4 cm with noted loop of small intestine Description of Procedure The patient was taken the operating room placed in the supine position. After adequate induction of general anesthesia, the patient was prepped and draped in normal sterile fashion. A time-out was then done to verify the patient's identity as well as the procedure being performed. I began by making a 5 mm incision in the left upper quadrant. Through this, a Veress needle was placed into the peritoneal cavity and CO2 gas was insufflated. After adequate pneumoperitoneum was achieved, a 5 mm trocar was placed through this incision. I then placed the laparoscope through this trocar site and under direct visualization I placed a 8 mm port in the left mid abdomen as well as an additional 8 mm port in the left lower abdomen. I then moved the camera to the lower port and replaced the 5 mm port with a 12 mm airport. The robot was then docked to the 3 port sites. I then went to the robotic console. I began by identifying the hernia. A moderate-sized incarcerated hernia was noted in the periumbilical region. Using graspers, I was able to reduce this hernia. The hernia was noted to contain a large amount of preperitoneal fat and omentum, as well as a loop of small intestine. Once reduced, I also reduced and dissected out the hernia sac. I then closed the approximately 4 cm defect with 0 strata fix suture. I then placed a 15x10 [address] mesh into the abdominal cavity. The positional stitch was placed in the middle of the mesh and brought up centering the mesh over the defect. Once this was done, I used 2 0 V lock suture x 2 to circumferentially suture the mesh to the abdominal. Once the mesh was completely sutured in, I was happy with our tension-free repair. The mesh was noted to have good overlap of the defect. I then removed the positioning device. At this point, the robot was undocked and all ports were removed. I then closed the 12 mm port site with an 0 Vicryl [id number] sut ure at the fascial level. All port sites were then closed with 4 O Monocryl subcuticular suture. The patient tolerated the procedure well, is extubated in the operating room postoperative, and transferred to the recovery room in stable condition. Implants 15x10 cm [address] mesh Estimated Blood Loss 25 Drains No Packing No Pathology None sent Complications No immediate complications Condition Stable Disposition PACU [facility] Billing Surgery - Charge Forward: Surgery Billing
[2022-05-10] MEDS: fentaNYL CITRATE INJ (*CRX) 100 MCG/2 ML VIAL 25 MCG IV PUSH ×4 (15:40→16:27)
[2022-05-10] MEDS: oxyCODONE HCL (*CRX) 5 MG TAB IR PO (16:53)
--- NOTE | 2022-05-10 17:09 | SUR.PHASEII ---
Dr. Meneses notified of patient's oxygen saturation levels 90-94% on 3L of oxygen despite patient's use of incentive spirometry. Dr. Meneses ordered patient to be admitted for observation over night. right of way maintenance supervisor notified of patient's need for bed.
--- NOTE | 2022-05-10 20:04 | ADMGEN ---
This patient, Saran Pretty, was admitted to Medical Room 248-. Patient/family oriented to hospital policies and general routines including ID bracelet, bed and alarms, visiting hours, pain management, procedures, bathroom and other care routines, personal items, smoking policy, room service/diet, and visiting hours. Information on how to activate the Rapid Response Team has been discussed. Patient/Family are encouraged to report perceived risks to care and to ask questions if they do not understand what they are told or what they should do.
[2022-05-10] MEDS: HYDROcodone/acetaminophen (*CRX) 5-325 MG TABLET 1 TAB PO (20:40)
[2022-05-11 03:58] VITALS: BP 135/83; PULSE 84; RESP 18; TEMP 36.6; O2SAT 98
[2022-05-11] MEDS: HYDROcodone/acetaminophen (*CRX) 5-325 MG TABLET 1 TAB PO ×2 (04:55→10:27)
[2022-05-11 07:28] VITALS: O2SAT 96
[2022-05-11 08:00] VITALS: O2SAT 96
[2022-05-11 08:25] VITALS: O2SAT 94
--- NOTE | 2022-05-11 10:16 | WPDANESPN ---
Anes - Prog Note Post-Op Date/Time: 05/11/22 10:16 Cardiovascular status: normal Respiratory status: normal Airway patency: baseline Mental status: baseline Post-Op hydration status: normal Vital Signs: Last Vital Signs Temp 36.6 C 05/11/22 03:58 Pulse 84 05/11/22 03:58 Resp 18 05/11/22 03:58 BP 135/83 05/11/22 03:58 Pulse Ox 94 05/11/22 08:25 O2 Del Method Room Air 05/11/22 08:25 O2 Flow Rate 2 05/11/22 08:00 Pain Score (VAS): 0 I/O: Intake & Output 05/10/22 05/11/22 05/11/22 23:59 07:59 15:59 Intake Total 300 700 240 Balance 300 700 240 Post-procedural complaints: none Patient Feedback: Patient satisfied with anesthetic care.
[2022-05-11 10:35] VITALS: BP 142/80; PULSE 61; RESP 18; TEMP 36.4; O2SAT 96
--- NOTE | 2022-05-11 10:54 | PM.DS ---
DS: Admitting Diagnosis Discharge Date 05/11/2022 Admitting Diagnosis Incarcerated periumbilical incisional hernia DS: Discharge Diagnosis Discharge Diagnosis (1) Incarcerated incisional hernia: Code(s): K43.0 - Incisional hernia with obstruction, without gangrene Status: Acute Assessment and Plan: status post robotic repair, continue routine postoperative care, home with p.o. analgesia, Colace (2) Respiratory failure with hypoxia: Code(s): J96.91 - Respiratory failure, unspecified with hypoxia Status: Acute Assessment and Plan: resolved overnight, good saturations on room air, up and ambulating without difficulty DS: Summary Hospital Course Reason for hospitalization: incarcerated periumbilical incisional hernia Hospital Course: The patient is a 57-year-old male with multiple medical issues including morbid obesity presenting with incarcerated periumbilical incisional hernia. The patient was noted to have small bowel obstruction secondary to this on prior admission. Patient was on 05/10/2022 and robotic assisted repair incarcerated periumbilical incisional hernia was performed, please see full operative report for details. Postoperative, the patient was noted to have respiratory issues including desaturation requiring oxygen therapy. Given this, the patient was admitted for observation overnight. A hospitalist consultation was also obtained. Overnight, the patient was continued on oxygen but saturations were stable. By the morning, the patient was able to be weaned to room air. He is tolerating a diet and up and ambulating without issue. He will be sent home with p.o. analgesia and Colace, as well as instructions for routine postoperative care. He will follow up with me in 2 weeks. Status at Discharge Functional status at discharge: independent ambulation Overall status at discharge: patient is progressing back to baseline Time Spent with Patient Time attestation: Total time spent providing and/or coordinating discharge services: Exam Const: General: cooperative, comfortable, no acute distress and obese Resp: Auscultation: clear to auscultation bilaterally Cardio: Rate: regular rate Rhythm: regular rhythm GI: Inspection: normal to inspection, distended and incision GI Palp: Yes abdominal tenderness, Yes Soft to palpation, Yes Tenderness to palpation present (GI), No Guarding due to palpation present (GI) and No Rigid due to palpation Discharge Plan Discharge Patient Disposition: Home, Self-Care Discharge Instructions: DISCHARGE INSTRUCTION SHEET FOR HERNIA, GALLBLADDER AND APPENDIX SURGERIES DR. LIMON PATIENT TO TAKE HOME 1. May shower in 24 hours, no soaking in bath x 2weeks. 2. Call office for: Wound increasingly painful or bleeding Vomiting Fever of greater than 101 degrees 3. If no bowel movement for three days, take 1 oz. (30 ml) Milk of Magnesia or MiraLax 17g 1 to 2 times daily. 4. No heavy lifting > 10-15 pounds x 6 weeks for hernia repairs and 2 weeks for laparoscopic cholecystectomy or appendectomy. 5. No driving for 3 days or while taking narcotic pain medications. 6. Ice to surgical site for 48 hours (30 min on, then 30 min off). 7. Up walking 10-30 minutes three times per day. 8. Resume previous home medications. 9. Follow-up 10-14 days in office for wound check or as previously scheduled. ([phone]) 10. Oral pain medications prescription to be sent to pharmacy. Take Tylenol 500mg every 6 hours and Ibuprofen 600mg every 6 hours for the first 2 days, then as needed. 11. NUTRITION: Start out by drinking fluids and increase your diet as tolerated. If you experience nausea, try dry toast, crackers, and 7-UP. If nausea or vomiting persists, contact your surgeon?s office. 12. Gallbladders-Low Fat Diet for 2 weeks (send care note of low fat diet) 13. Inguinal Hernias-wear scr
== END 2022-05-11 13:04 | disposition home or self-care (01) ==
LOC: ANHSURGERY 10:00 → ANH2MED 19:42
PROVIDERS: PCP Family Medicine; Visit Provider Surgery
PROC: (CPT 49655; principal; 2022-05-10 12:00)
DX: K43.0 Incisional hernia with obstruction, without gangrene (principal); J96.91 Respiratory failure, unspecified with hypoxia; I10 Essential (primary) hypertension; Z87.891 Personal history of nicotine dependence; E66.01 Morbid (severe) obesity due to excess calories; Z68.44 Body mass index [BMI] 60.0-69.9, adult
CPT/HCPCS: 49655; S2900; A9270; C1781; J0330; J0690; J1100; J1885; J2250; J2405; J2704; J2710; J3010; J7030; J7120

== ENCOUNTER 2022-08-31 13:05 | Inpatient (IN) | payer BC, SELFPAY ==
[2022-08-31] VITALS (37 sets, daily range): BP systolic 115–164; BP diastolic 80–109; PULSE 67–145; RESP 16–33; TEMP 36.6–36.9; O2SAT 89–100; BMI 69.4
--- NOTE | ~2022-08-31 | XR_ITS ---
XR chest 1V portable DATE: 09/02/2022 11:00 INDICATION: Cough TECHNIQUE: Portable AP chest on September 02, 2022 at 1058 hours COMPARISON: August 31, 2022 PA and lateral chest FINDINGS: Cardiomegaly is suggested. There is pulmonary vascular redistribution which may indicate mi ld pulmonary venous hypertension. No pulmonary infiltrate or consolidation or pneumothorax is detected. IMPRESSION: Mild cardiomegaly and pulmonary vascular redistribution suggesting possible mild congesti ve change. Clinical correlation is advised. Reviewed, dictated and finalized at location A. IMPRESSION: Mild cardiomegaly and pulmonary vascular redistribution suggesting possible mild congestive change. Clinical correlation is advised.
--- NOTE | ~2022-08-31 | XR_ITS ---
EXAMINATION: XR chest 2V DATE: 08/31/2022 13:38 INDICATION: Shortness of breath and cough. TECHNIQUE: Frontal and lateral views of the chest were obtained on 3 radiographs. COMPARISON: Chest single view 06/16/2020, CT abdomen and pelvis 01/30/2022 FINDINGS: There is no pneumonia, pleural effusion, or pneumothorax. Cardiomegaly is noted. IMPRESSION: 1. Cardiomegaly. Reviewed, dictated and finalized at location A. IMPRESSION: 1. Cardiomegaly.
--- NOTE | 2022-08-31 13:08 | ECG_ITS ---
Measurements Intervals [place] Rate: 136 P: VT: 0 QRS: -30 QRSD: 70 T: 49 QT: 258 QTc: 389 Interpretive Statements ATRIAL FIBRILLATION WITH RAPID VENTRICULAR RESPONSE BASELINE ARTIFACT LOW QRS VOLTAGE IN PRECORDIAL LEADS ABNORMAL ECG COMPARED TO ECG 02/23/2022 08:29:52 ATRIAL FIBRILLATION NOW PRESENT Electronically Signed On 09-01-2022 14:55:52 CDT by Awais Fitch M.D.
[2022-08-31 13:24] LABS: Basophils Percent Auto 0.4 % (0.2-1.2); Eosinophils Absolute Auto 0.1 K/mm3 (0-0.3); Eosinophils Percent Auto 0.9 % (0-4.4); Hematocrit 45.5 % (42.0-52.0); Hemoglobin 13.8 g/dL (14.0-18.0); Immature Granulocyte Absolute 0.02 K/mm3 (0.00-0.031); Immature Granulocyte Percent A 0.3 % (0-0.5); Immature Platelet Fraction Pct 11.5 % (0.9-11.2); Lymphocytes Percent Auto 9.9 % (18.3-44.2); Mean Corpuscular HGB Conc 30.3 g/dl (32-36); Mean Corpuscular Hemoglobin 25.7 pg (26-34); Mean Corpuscular Volume 84.6 fl (80-100); Mean Platelet Volume 12.5 fl (7.4-10.4); Monocytes Absolute Auto 0.8 K/mm3 (0.1-0.6); Monocytes Percent Auto 11.6 % (2.6-8.5); Neutrophils Absolute Auto 5.4 K/mm3 (1.3-6.7); Neutrophils Percent Auto 76.9 % (45.5-73.1); Platelet Count Result 145 k/mm3 (150-375); Red Blood Count 5.38 M/mm3 (4.6-6.20); Red Cell Distribution Width 18.6 % (11.5-14.5)
--- NOTE | 2022-08-31 13:29 | PC.NURSE ---
Patient off unit to radiology.
[2022-08-31 13:39] LABS: Alanine Aminotransferase 28 U/L (6-50); Alkaline Phosphatase 83 U/L (38-126); Anion Gap 6 mmol/L (8-16); Aspartate Amino Transferase 23 U/L (17-59); Bilirubin,Total 0.9 mg/dL (0.2-1.3); Blood Urea Nitrogen 12 mg/dL (9-20); Calcium 8.6 mg/dL (8.4-10.2); Carbon Dioxide 28 mmol/L (22-30); Chloride 107 mmol/L (98-107); Estimated CRCL calculation 178 ml/min; Estimated Glomerular Filt Rate > 60; Glucose 109 mg/dL (65-110); Potassium 4.1 mmol/L (3.4-5.0); Sodium 141 mmol/L (137-145)
[2022-08-31 13:40] LABS: INR 1.1; Prothrombin Time 13.7 Seconds (11.1-14.7)
[2022-08-31 13:51] LABS: Troponin I < 0.012 ng/mL (0.000-0.034)
--- NOTE | 2022-08-31 14:04 | PC.NURSE ---
MD made aware of rate and rhythm.
[2022-08-31] MEDS: ASPIRIN 81 MG CHEWABLE TABLET 324 MG PO (14:42)
[2022-08-31] MEDS: dilTIAZem 100 MG/100 ML 100 MG/100 ML BAG IV CONT (14:43)
[2022-08-31] MEDS: dilTIAZem HCl INJ 25 MG/5 ML VIAL 10 MG IV PUSH (14:43)
[2022-08-31 15:30] LABS: NT Pro B Type Natriuretic Pept 1130 pg/mL (19.9-100)
--- NOTE | 2022-08-31 15:37 | ED.GENADULT ---
HPI - General Adult General Chief complaint: Shortness of Breath/Dyspnea Stated complaint: trouble breathing Time Seen by Provider: 08/31/22 13:36 History of Present Illness HPI narrative: 57-year-old male presented the emergency department for evaluation of increased shortness of breath. Patient states over the course of the last week he has had increased cough and congestion primarily over the left side of his chest. Patient does have history of hypertension and borderline high cholesterol. Patient denies any prior history of coronary disease or congestive heart failure. Patient states he did have a recent stress test that was negative. Patient reports cough and shortness of breath but denies any chest pain with this. Related Data Home Medications Medication Instructions Recorded Confirmed docusate sodium 100 mg capsule 100 mg PO PRN 08/31/22 08/31/22 (Colace) Allergies Allergy/AdvReac Type Severity Reaction Status Date / Time No Known Allergies Allergy Verified 08/31/22 13:08 Review of Systems Review of Systems: All systems reviewed & are unremarkable except as noted in HPI and below PMFSH Past Medical History Medical History (Updated 08/31/22 @ 19:45 by Pop Berman MD) Acute medial meniscus tear of right knee Annual physical exam Arthritis of knee, right Asthma Essential (primary) hypertension Hypertension Lung disease Nocturia Obesity Right knee injury Sprain of left foot Urinary frequency Surgical History Surgical History (Updated 05/23/22 @ 09:03 by TRAMAINE Argueta) H/O: knee surgery History of incisional hernia repair Robo assisted incarcerated inc hernia repair w mesh on 05/10/22 History of laparoscopic cholecystectomy Family History Family History Father Hypertension Mother Hypertension Social History Social History Smoking packs per day: 1 Smoking cigarettes per day: 20.0 Years smoked: 3 Smoking pack-years: 3.00 Smoking status: Never smoker Tobacco type: cigarettes Smoking end date: 05/27/94 Alcohol intake: never Substance use: never Substance use type: does not use Lack of Transportation: No Lack of Food: Never True Current Housing: I Have Housing Concerned About Future Housing: No Difficulty Paying Gas/Electric Bills: No Difficulty Paying for Meds: No Currently Unemployed: No Education: High School Diploma/GED Difficulty w/ Childcare or Family Care: No Living arrangements: with family Occupation/Education: occupation Gender identity (if verbalized by the patient): Male Sexual Orientation (if Verbalized by the Patient): Straight or Heterosexual Spiritual care concerns: No Exam Narrative: APPEARANCE: Well appearing, no pain, no distress, well-nourished. HEAD: normocephalic, atraumatic. EYES: PERRLA/EOMI, conjunctivae clear. NOSE: Normal no drainage NECK: Supple. No adenopathy, no masses. RESPIRATORY: Airway patent, respirations nonlabored. Clear to auscultation bilaterally, no rales, rhonchi, wheezing. CARDIOVASCULAR: Atrial fibrillation ABDOMINAL: Soft, nontender, nondistended, normal bowel sounds MUSCULOSKELETAL: Moves all extremities. Strength/ROM intact, No edema, No calf tenderness. NEURO: Alert. Cranial nerves II through XII intact. Grossly intact SKIN: Warm, dry. Normal Color Course Course Emergency Course: 57-year-old male presenting to the emergency department for evaluation of increased shortness of breath. Upon arrival to the ED patient's heart rate was in the 150s. Patient was started on Cardizem and Cardizem infusion due to him being in atrial fibrillation with with RVR. Patient was afebrile with no leukocytosis. Patient's INR was 1.1. Patient's chemistries were within normal limits. Patient's BNP was elevated at 1130. Patient had negative troponin and no chest pain with this.
[2022-08-31 15:43] LABS: Influenza A QL RT-PCR Negative (Negative); Influenza B QL RT-PCR Negative (Negative); SARS-CoV-2 RNA PCR Negative
[2022-08-31] MEDS: FUROSEMIDE INJ 40 MG/4 ML VIAL IV PUSH (15:59)
--- NOTE | 2022-08-31 16:35 | PC.NURSE ---
Patient called out to nursing station after receiving IV Lasix and communicated that he needed to urinate. Urinal at bedside but patient reported that he was unable to use urinal. Attempted to use BSC but patient was unable and wanted to walk to the BR. solar installation technician assisted patient to BR and on the way back patient notably SOB with labored breathing. HR of 200 on monitor. Patient placed back in bed and HR and respiratory effort quickly recovered back to baseline. Patient reported that he has been extremely SOB with an activity for the past week.
--- NOTE | 2022-08-31 19:04 | ADMGEN ---
This patient, Saran Pretty, was admitted to IMU Room 203-01 at 1854. Patient/family oriented to hospital policies and general routines including ID bracelet, bed and alarms, visiting hours, pain management, procedures, bathroom and other care routines, personal items, smoking policy, room service/diet, and visiting hours. Information on how to activate the Rapid Response Team has been discussed. Patient/Family are encouraged to report perceived risks to care and to ask questions if they do not understand what they are told or what they should do.
--- NOTE | 2022-08-31 20:17 | PM.IMHP ---
H&P: HPI History of Present Illness Date/Time: 08/31/22 20:17 Chief Complaint: Shortness of breath Narrative: This is a 57-year-old male with past medical history significant for morbid obesity, hypertension. Patient presents to the emergency room after having episode of sudden onset shortness of breath had to sit down and wait 20 minutes before he was able to continue his activity this happened while he was at the parking lot after leaving his car and going inside the store. Patient denies any lightheadedness, chest pain, cough, sputum production, no orthopnea, no PND, has had bilateral lower extremity edema, no syncope or near syncope no fluttery feeling of the chest, no palpitations. In emergency room patient was found to have atrial fibrillation with rapid ventricular response. Preliminary workup was otherwise essentially nonrevealing. Chest x-ray FINDINGS: There is no pneumonia, pleural effusion, or pneumothorax. Cardiomegaly is noted. IMPRESSION: 1. Cardiomegaly. EKG ATRIAL FIBRILLATION WITH RAPID VENTRICULAR RESPONSE LOW QRS VOLTAGE IN PRECORDIAL LEADS [QRS DEFLECTION < 1.0 mV IN CHEST LEADS] POSSIBLE ANTERIOR MYOCARDIAL INFARCTION , PROBABLY OLD [30 ms Q WAVE IN V3/V4, OR R < 0.2 mV IN V4] ABNORMAL RHYTHM ECG COMPARED TO ECG 02/23/2022 08:29:52 ATRIAL FIBRILLATION NOW PRESENT Review of Systems Review of Systems: Shortness of breath Constitutional: Constitutional: Denies chills, Denies fatigue, Denies fever(s), Denies lethargy, Denies malaise, Denies night sweats, Denies poor appetite and Denies weakness Eyes: Eyes: Denies change in vision ENT: Denies dysphagia and Denies odynophagia Cardiovascular: Cardiovascular: Denies chest pain, Denies syncope, Denies rapid heart rate, Denies irregular heart rhythm, Reports leg edema, Denies lightheadedness, Denies radiating jaw, neck or arm pain and Reports dyspnea Respiratory: Respiratory: Reports chest congestion, Reports cough, Denies excessive phlegm production and Denies pain on inspiration Gastrointestinal: Gastrointestinal: Denies abdominal pain, Denies dyspepsia, Denies heartburn, Denies diarrhea, Denies nausea and Denies vomiting Genitourinary: Genitourinary: Denies dysuria Musculoskeletal: Musculoskeletal: Reports no additional musculoskeletal complaints and Reports as per HPI Integumentary/Breasts: Skin/Breast: Denies rash Neurologic: Denies focal weakness and Denies Sensory deficit (Neuro) Psychiatric: Psychiatric: Reports no additional psychiatric complaints and Reports as per HPI Endocrine: Endocrine: Denies cold intolerance, Denies flushing, Denies heat intolerance, Denies polyphagia, Denies polydipsia and Denies palpitations Hematologic/Lymphatic: Hematologic/Lymphatic: Reports no additional hematologic/lymphatic complaints and Reports as per HPI Allergic/Immunologic: Allergic/Immunologic: Reports no additional allergic/immunologic complaints and Reports as per HPI PMFSH Past Medical History Medical History (Updated 09/01/22 @ 01:10 by Regi Cruz MD) Acute medial meniscus tear of right knee Annual physical exam Arthritis of knee, right Asthma Essential (primary) hypertension Hypertension Lung disease Nocturia Obesity Right knee injury Sprain of left foot Urinary frequency Surgical History Surgical History (Updated 05/23/22 @ 09:03 by TRAMAINE Argueta) H/O: knee surgery History of incisional hernia repair Robo assisted incarcerated inc hernia repair w mesh on 05/10/22 History of laparoscopic cholecystectomy Family History Family History Father Hypertension Mother Hypertension Social History Social History Smoking packs per day: 1 Smoking cigarettes per day: 20.0 Years smoked: 3 Smoking pack-years: 3.00 Smoking status: Never smoker Tobacco type: cigarettes Smoking end date: 05/27/94 [facility]
[2022-08-31] MEDS: dilTIAZem 100 MG/100 ML 100 MG/100 ML BAG 10 MG IV CONT (23:38)
[2022-08-31] MEDS: guaiFENesin 200 MG/10 ML UDC PO (23:38)
[2022-09-01] VITALS (16 sets, daily range): BP systolic 103–149; BP diastolic 52–76; PULSE 88–115; RESP 16–22; TEMP 36.3–36.6; O2SAT 91–96
[2022-09-01] MEDS: guaiFENesin 200 MG/10 ML UDC PO ×2 (03:55→23:14)
--- NOTE | 2022-09-01 06:15 | PM.IMPN ---
Progress Note: A&P Assessment and Plan (1) Atrial fibrillation with rapid ventricular response: Code(s): I48.91 - Unspecified atrial fibrillation Status: Acute Assessment and Plan: heart rate currently in the 110-120s rhythm appears to still be in AFib [facility] on board sotalol initiated echo from 03/29 shows EF of 60 65% with grade 1 diastolic dysfunction Eliquis initiated will palomo check continue tele monitor EKG p.r.n. for QTC monitoring (2) Severe obstructive sleep apnea: Code(s): G47.33 - Obstructive sleep apnea (adult) (pediatric) Status: Acute Assessment and Plan: Unclear if use of CPAP at nighttime (3) Morbid obesity with BMI of 60.0-69.9, adult: Code(s): E66.01 - Morbid (severe) obesity due to excess calories; Z68.44 - Body mass index [BMI] 60.0-69.9, adult Status: Acute Assessment and Plan: Lifestyle and diet modifications consider dietitian consult (4) Hypertension: Code(s): I10 - Essential (primary) hypertension Status: Acute Assessment and Plan: current blood pressure 149/76 continue lisinopril and hydrochlorothiazide trend blood pressure adjust therapy as indicated (5) CHF (congestive heart failure): Code(s): I50.9 - Heart failure, unspecified Status: Acute Assessment and Plan: echo indicates grade 1 diastolic dysfunction bilateral lower extremities exhibit 2-3+ pitting edema trend urine output trend daily weight initiate Lasix 40 mg b.i.d. consider ajit erickson (6) Mixed hyperlipidemia: Code(s): E78.2 - Mixed hyperlipidemia Status: Acute Assessment and Plan: cholesterol 207, LDL 135, HDL 45, triglycerides 148 start atorvastatin 40 mg daily Time Spent With Patient Time: 51 minutes Time with patient: Greater than 35 minutes Subjective Date/time seen: 09/01/22614 Interval history: 09/01/22614 Patient was sitting on the side the bed. Patient stated that he was awaiting breakfast. He currently denies any chest pain, nausea, vomiting, diarrhea or constipation. Patient did state that his appetite was okay. Patient is complaining of shortness of breath with activity along with palpitations. He is also stating that he is having a cough with phlegm production. Which he did know what color was however looking at the napkin it was red. He also does have 2 to 3+ pitting edema bilateral lower extremities. 08/31/22? 20:17 This is a 57-year-old male with past medical history significant for morbid obesity, hypertension.? Patient presents to the emergency room after having episode of sudden onset shortness of breath had to sit down and wait 20 minutes before he was able to continue his activity this happened while he was at the parking lot after leaving his car and going inside the store.? Patient denies any lightheadedness, chest pain, cough, sputum production, no orthopnea, no PND, has had bilateral lower extremity edema, no syncope or near syncope no fluttery feeling of the chest, no palpitations.? In emergency room patient was found to have atrial fibrillation with rapid ventricular response.? Preliminary workup was otherwise? essentially nonrevealing. Review of Systems Review of Systems: All systems reviewed & are unremarkable except as noted in HPI and below Exam Narrative: General: well-nourished, well-appearing Obese 57-year-old male, sitting on the side of bed, comfortable, NARD Neuro: awake, alert and oriented x4, speech clear, no focal neuro deficits noted HEENMT: normocephalic, atraumatic, EOMI, sclerae anicteric, moist oral mucosa Respiratory: rhonchi to auscultation bilaterally without crackles or wheezes, nonlabored breathing Cardio: tachycardia rate, irregular rhythm with S1-S2 Abdomen: nondistended,
--- NOTE | 2022-09-01 06:15 | P.PNIM_ITS ---
Progress Note: A&P Assessment and Plan (1) Atrial fibrillation with rapid ventricular response: Code(s): I48.91 - Unspecified atrial fibrillation Status: Acute Assessment and Plan: * heart rate currently in the 110-120s * rhythm appears to still be in AFib * continue Cardizem drip * cardiology on board * sotalol initiated * echo from 03/29 shows EF of 60 65% with grade 1 diastolic dysfunction * Eliquis initiated will palomo check * continue tele monitor * EKG p.r.n. for QTC monitoring (2) Severe obstructive sleep apnea: Code(s): G47.33 - Obstructive sleep apnea (adult) (pediatric) Status: Acute Assessment and Plan: * Unclear if use of CPAP at nighttime (3) Morbid obesity with BMI of 60.0-69.9, adult: Code(s): E66.01 - Morbid (severe) obesity due to excess calories; Z68.44 - Body mass index [BMI] 60.0-69.9, adult Status: Acute Assessment and Plan: * Lifestyle and diet modifications * consider dietitian consult (4) Hypertension: Code(s): I10 - Essential (primary) hypertension Status: Acute Assessment and Plan: * current blood pressure 149/76 * continue lisinopril and hydrochlorothiazide * trend blood pressure * adjust therapy as indicated (5) CHF (congestive heart failure): Code(s): I50.9 - Heart failure, unspecified Status: Acute Assessment and Plan: * echo indicates grade 1 diastolic dysfunction * bilateral lower extremities exhibit 2-3+ pitting edema * trend urine output * trend daily weight * initiate Lasix 40 mg b.i.d. * consider ajit erickson (6) Mixed hyperlipidemia: Code(s): E78.2 - Mixed hyperlipidemia Status: Acute Assessment and Plan: * cholesterol 207, LDL 135, HDL 45, triglycerides 148 * start atorvastatin 40 mg daily Time Spent With Patient Time: 51 minutes Time with patient: Greater than 35 minutes Subjective Date/time seen: 09/01/22614 Interval history: 09/01/22614 Patient was sitting on the side the bed. Patient stated that he was awaiting breakfast. He currently denies any chest pain, nausea, vomiting, diarrhea or constipation. Patient did state that his appetite was okay. Patient is complaining of shortness of breath with activity along with palpitations. He is also stating that he is having a cough with phlegm production. Which he did know what color was however looking at the napkin it was red. He also does have 2 to 3+ pitting edema bilateral lower extremities. 08/31/22? 20:17 This is a 57-year-old male with past medical history significant for morbid obesity, hypertension.? Patient presents to the emergency room after having episode of sudden onset shortness of breath had to sit down and wait 20 minutes before he was able to continue his activity this happened while he was at the parking lot after leaving his car and going inside the store.? Patient denies any lightheadedness, chest pain, cough, sputum production, no orthopnea, no PND, has had bilateral lower extremity edema, no syncope or near syncope no fluttery feeling of the chest, no palpitations.? In emergency room patient was found to have atrial fibrillation with rapid ventricular response.? Preliminary workup was otherwise? essentially nonrevealing. Review of
[2022-09-01] MEDS: HEPARIN SODIUM 5,000 UNITS/ML VIAL 5000 UNITS SUB-Q (06:34)
--- NOTE | 2022-09-01 07:45 | PM.CNCAR ---
Assessment and Plan Assessment and plan (1) Atrial fibrillation with rapid ventricular response: Code(s): I48.91 - Unspecified atrial fibrillation Status: Acute Assessment and Plan: Likely secondary to undiagnosed ARPAN and obesity. Continue Diltiazem drip for rate control. [id number] (hypertension and elevated NTproBNP) Start Sotalol 80 mg every 12 hours and start Eliquis 5 mg BID. Stop Heparin shots. Check EKG 1-2 hours post each Sotalol dose. Continue Diltiazem for rate control, but if cardioverts to sinus rhythm or HR is <70 bpm in atrial fib then may stop Diltiazem. Anticipate 2 more night stay. (2) Hypertension: Code(s): I10 - Essential (primary) hypertension Status: Acute Assessment and Plan: Stable. (3) Morbid obesity with BMI of 60.0-69.9, adult: Code(s): E66.01 - Morbid (severe) obesity due to excess calories; Z68.44 - Body mass index [BMI] 60.0-69.9, adult Status: Acute (4) LUNA (dyspnea on exertion): Code(s): R06.09 - Other forms of dyspnea Status: Acute (5) Hypersomnia: Code(s): G47.10 - Hypersomnia, unspecified Status: Acute Assessment and Plan: Will need outpatient sleep study. History of Present Illness History of Present Illness Consult date/time: 09/01/22 07:45 Reason For Visit: Congestive Heart Failure/A Fib with RVR Narrative: 57 yr old man is my regular cardiology patient and PCP is Dr. Fonseca presents to ER for sob. He has a history of hypertension, dyslipidemia, ARPAN. Reports he is limited at walking very short distances the last 3 weeks due to sob while previously he would be able to walk 1 block. Admits to snoring, waking up and daytime sleepiness. Denies chest pain, sob, orthopnea, PND, edema, dizziness, palpitations. Cardiovascular Procedures Electrophysiology:: 08/31/22 EKG: Atrial fibrillation at 136 bpm. 02/23/22 EKG: Sinus rhythm, PVC, frequent PAC's, low voltage in precordial leads, borderline T wave in inferior leads. Echo: 03/29/22 Echo: EF 60-65%, grade I diastolic dysfunction. Stress testin03/29/22 Stress test: Negative for ischemia; exercised for 3 minutes. Review of Systems Review of Systems: All systems reviewed & are unremarkable except as noted in HPI and below Cardiovascular: Cardiovascular: Reports as per HPI, Denies chest pain, Denies irregular heart rhythm, Denies leg edema and Denies lightheadedness Respiratory: Respiratory: Reports as per HPI, Reports dyspnea and Reports dyspnea on exertion Gastrointestinal: Gastrointestinal: Reports as per HPI and Denies abdominal pain Genitourinary: Genitourinary: Reports as per HPI and Denies dysuria Musculoskeletal: Musculoskeletal: Reports as per HPI Neurologic: Reports as per HPI, Denies dizziness and Denies syncope [facility] Past Medical History Medical History (Updated 09/01/22 @ 01:10 by Regi Cruz MD) Acute medial meniscus tear of right knee Annual physical exam Arthritis of knee, right Asthma Essential (primary) hypertension Hypertension Lung disease Nocturia Obesity Right knee injury Sprain of left foot Urinary frequency Surgical History Surgical History (Updated 05/23/22 @ 09:03 by TRAMAINE Argueta) H/O: knee surgery History of incisional hernia repair [facility] assisted incarcerated [facility] hernia repair w mesh on 05/10/22 History of laparoscopic cholecystectomy Family History Family History Father Hypertension Mother Hypertension Social History Social History Smoking packs per day: 1 Smoking cigarettes per day: 20.0 Years smoked: 3 Smoking pack-years: 3.00 Smoking status: Never smoker Tobacco type: cigarettes Smoking end date: 05/27/94 Alcohol intake: never Substance use: never Substance use type: does not use Lack of Transportation: No Lack of Food: Never True Current Housing
[2022-09-01] MEDS: hydroCHLOROthiazide 12.5 MG CAPSULE PO (09:50)
[2022-09-01] MEDS: lisinopriL 20 MG TABLET 40 MG PO (09:50)
[2022-09-01] MEDS: SOTALOL HCL 80 MG TABLET PO ×2 (09:50→20:20)
[2022-09-01] MEDS: ATORVASTATIN 40 MG TABLET PO (09:50)
[2022-09-01] MEDS: APIXABAN 5 MG TABLET PO ×2 (09:52→20:20)
[2022-09-01] MEDS: FUROSEMIDE INJ 40 MG/4 ML VIAL IV PUSH ×2 (09:53→18:20)
[2022-09-01] MEDS: dilTIAZem 100 MG/100 ML 100 MG/100 ML BAG 10 MG IV CONT (11:19)
--- NOTE | 2022-09-01 12:30 | ECG_ITS ---
Measurements Intervals [place] Rate: 95 P: [place]: 0 QRS: -24 QRSD: 81 T: 17 QT: 364 QTc: 458 Interpretive Statements ATRIAL FIBRILLATION LOW QRS VOLTAGE IN PRECORDIAL LEADS PATTERN CONSISTENT WITH PULMONARY DISEASE ABNORMAL ECG COMPARED TO ECG 08/31/2022 13:12:37 NO SIGNIFICANT CHANGES Electronically Signed On 09-01-2022 15:33:05 CDT by Awais Fitch M.D.
--- NOTE | 2022-09-01 21:45 | ECG_ITS ---
Measurements Intervals [place] Rate: 82 P: DE: 0 QRS: -27 QRSD: 97 T: 6 QT: 381 QTc: 446 Interpretive Statements ATRIAL FIBRILLATION LOW QRS VOLTAGE IN PRECORDIAL LEADS PATTERN CONSISTENT WITH PULMONARY DISEASE ABNORMAL ECG COMPARED TO ECG 09/01/2022 12:31:21 NO SIGNIFICANT CHANGES Electronically Signed On 09-02-2022 13:43:30 CDT by Awais Fitch M.D.
--- NOTE | 2022-09-01 21:55 | PC.NURSE ---
QTc on am EKG 458. Second dose of Sotalol 80mg administered at 2019. Will obtain follow-up EKG.
[2022-09-02] VITALS (15 sets, daily range): BP systolic 105–119; BP diastolic 42–77; PULSE 64–112; RESP 12–22; TEMP 36.3–36.7; O2SAT 92–96
[2022-09-02 05:03] LABS: Basophils Absolute Auto 0.1 K/mm3 (0.0-0.1); Basophils Percent Auto 0.7 % (0.2-1.2); Eosinophils Absolute Auto 0.1 K/mm3 (0-0.3); Eosinophils Percent Auto 1.5 % (0-4.4); Hematocrit 44.7 % (42.0-52.0); Hemoglobin 13.5 g/dL (14.0-18.0); Immature Granulocyte Absolute 0.03 K/mm3 (0.00-0.031); Immature Granulocyte Percent A 0.4 % (0-0.5); Immature Platelet Fraction Pct 14.7 % (0.9-11.2); Lymphocytes Absolute Auto 0.83 K/mm3 (0.9-3.2); Lymphocytes Percent Auto 11.6 % (18.3-44.2); Mean Corpuscular HGB Conc 30.2 g/dl (32-36); Mean Corpuscular Hemoglobin 25.7 pg (26-34); Mean Platelet Volume 12.6 fl (7.4-10.4); Monocytes Absolute Auto 1.2 K/mm3 (0.1-0.6); Monocytes Percent Auto 16.3 % (2.6-8.5); Neutrophils Percent Auto 69.5 % (45.5-73.1); Platelet Count Result 165 k/mm3 (150-375); Red Blood Count 5.26 M/mm3 (4.6-6.20); Red Cell Distribution Width 19.2 % (11.5-14.5); White Blood Count 7.2 K/mm3 (4.5-10.0)
--- NOTE | 2022-09-02 05:07 | PC.NURSE ---
Cardizem drip stopped at 0400, heart rate 65-75. VSS, remains in AFIB.
[2022-09-02 05:12] LABS: Alanine Aminotransferase 25 U/L (6-50); Albumin Level 4.1 g/dL (3.5-5.1); Alkaline Phosphatase 74 U/L (38-126); Anion Gap 6 mmol/L (8-16); Aspartate Amino Transferase 25 U/L (17-59); Bilirubin,Total 1.4 mg/dL (0.2-1.3); Blood Urea Nitrogen 21 mg/dL (9-20); Calcium 8.5 mg/dL (8.4-10.2); Carbon Dioxide 30 mmol/L (22-30); Chloride 100 mmol/L (98-107); Estimated CRCL calculation 132 ml/min; Estimated Glomerular Filt Rate > 60; Glucose 109 mg/dL (65-110); Magnesium 2.4 mg/dL (1.6-2.3); Potassium 3.7 mmol/L (3.4-5.0); Sodium 136 mmol/L (137-145)
[2022-09-02] MEDS: lisinopriL 10 MG TABLET PO (08:33)
[2022-09-02] MEDS: ATORVASTATIN 40 MG TABLET PO (08:33)
[2022-09-02] MEDS: APIXABAN 5 MG TABLET PO ×2 (08:33→20:28)
[2022-09-02] MEDS: FUROSEMIDE 40 MG TABLET PO (08:33)
[2022-09-02] MEDS: SOTALOL HCL 80 MG TABLET PO ×2 (08:34→20:27)
[2022-09-02] MEDS: hydroCHLOROthiazide 12.5 MG CAPSULE PO (08:34)
--- NOTE | 2022-09-02 08:45 | P.PNIM_ITS ---
Progress Note: A&P Assessment and Plan (1) Atrial fibrillation with rapid ventricular response: Code(s): I48.91 - Unspecified atrial fibrillation Status: Acute Assessment and Plan: * heart rate currently in the 110-120s * rhythm appears to still be in AFib * HR seems to be controlled at this point * Cardizem drip DC'd at this time * EKG (09/02/22) a. fib rate of 82 QTc 446 * cardiology on board * sotalol continued * EKG for QTc monitoring * echo from 03/29 shows EF of 60 65% with grade 1 diastolic dysfunction * Eliquis continued * continue tele monitor (2) Severe obstructive sleep apnea: Code(s): G47.33 - Obstructive sleep apnea (adult) (pediatric) Status: Acute Assessment and Plan: * Unclear if use of CPAP at nighttime (3) Morbid obesity with BMI of 60.0-69.9, adult: Code(s): E66.01 - Morbid (severe) obesity due to excess calories; Z68.44 - Body mass index [BMI] 60.0-69.9, adult Status: Acute Assessment and Plan: * Lifestyle and diet modifications * consider dietitian consult (4) Hypertension: Code(s): I10 - Essential (primary) hypertension Status: Acute Assessment and Plan: * current blood pressure 117/54 * continue lisinopril and hydrochlorothiazide * trend blood pressure * adjust therapy as indicated (5) CHF (congestive heart failure): Code(s): I50.9 - Heart failure, unspecified Status: Acute Assessment and Plan: * echo indicates grade 1 diastolic dysfunction * Appears to be acute on chronic diastolic heart failure in exacerbation * bilateral lower extremities exhibit 2-3+ pitting edema * trend urine output * trend daily weight * initiate Lasix 40 mg b.i.d. total of 4 doses * consider ajit erickson (6) Mixed hyperlipidemia: Code(s): E78.2 - Mixed hyperlipidemia Status: Acute Assessment and Plan: * cholesterol 207, LDL 135, HDL 45, triglycerides 148 * start atorvastatin 40 mg daily Plan Cough and sputum changes, will give azithromycin. He is currently on lasix. Chest xray indicated vascular changes. He is getting serial EKGs so will monitor QTc that way as well. Time Spent With Patient Time: 53 minutes Time with patient: Greater than 35 minutes Subjective Date/time seen: 09/02/22844 Interval history: 09/02/22844 patient's only complaint today is cough. He stated that it is been clear and green and yellow. Chest x-ray was performed showed pulmonary vascular re distribution suggesting possible mild congestive changes. Patient also stated he is unable lay flat as he goes into a coughing fit. He denies any other chest pain, shortness a breath, nausea, vomiting, diarrhea constipation. He also stated that he is urinating okay as well. 09/01/22614 Patient was sitting on the side the bed. Patient stated that he was awaiting b [facility]. He currently denies any chest pain, nausea, vomiting, diarrhea or constipation. Patient did state that his appetite was okay. Patient is complaining of shortness of breath with activity along with palpitations. He is also stating that he is having a cough with phlegm production. Which he did know what color was however looking at the napkin it was red. He also does have 2 to 3+ pitting edema bila
--- NOTE | 2022-09-02 08:45 | PM.IMPN ---
Progress Note: A&P Assessment and Plan (1) Atrial fibrillation with rapid ventricular response: Code(s): I48.91 - Unspecified atrial fibrillation Status: Acute Assessment and Plan: heart rate currently in the 110-120s rhythm appears to still be in AFib HR seems to be controlled at this point Cardizem drip DC'd at this time EKG (09/02/22) a. fib rate of 82 QTc 446 cardiology on board sotalol continued EKG for QTc monitoring echo from 03/29 shows EF of 60 65% with grade 1 diastolic dysfunction Eliquis continued continue tele monitor (2) Severe obstructive sleep apnea: Code(s): G47.33 - Obstructive sleep apnea (adult) (pediatric) Status: Acute Assessment and Plan: Unclear if use of CPAP at nighttime (3) Morbid obesity with BMI of 60.0-69.9, adult: Code(s): E66.01 - Morbid (severe) obesity due to excess calories; Z68.44 - Body mass index [BMI] 60.0-69.9, adult Status: Acute Assessment and Plan: Lifestyle and diet modifications consider dietitian consult (4) Hypertension: Code(s): I10 - Essential (primary) hypertension Status: Acute Assessment and Plan: current blood pressure 117/54 continue lisinopril and hydrochlorothiazide trend blood pressure adjust therapy as indicated (5) CHF (congestive heart failure): Code(s): I50.9 - Heart failure, unspecified Status: Acute Assessment and Plan: echo indicates grade 1 diastolic dysfunction Appears to be acute on chronic diastolic heart failure in exacerbation bilateral lower extremities exhibit 2-3+ pitting edema trend urine output trend daily weight initiate Lasix 40 mg b.i.d. total of 4 doses consider ajit erickson (6) Mixed hyperlipidemia: Code(s): E78.2 - Mixed hyperlipidemia Status: Acute Assessment and Plan: cholesterol 207, LDL 135, HDL 45, triglycerides 148 start atorvastatin 40 mg daily Plan Cough and sputum changes, will give azithromycin. He is currently on lasix. Chest xray indicated vascular changes. He is getting serial EKGs so will monitor QTc that way as well. Time Spent With Patient Time: 53 minutes Time with patient: Greater than 35 minutes Subjective Date/time seen: 09/02/22 0845 Interval history: 09/02/2245 patient's only complaint today is cough. He stated that it is been clear and green and yellow. Chest x-ray was performed showed pulmonary vascular redistribution suggesting possible mild congestive changes. Patient also stated he is unable lay flat as he goes into a coughing fit. He denies any other chest pain, shortness a breath, nausea, vomiting, diarrhea constipation. He also stated that he is urinating okay as well. 09/01/22 0615 Patient was sitting on the side the bed. Patient stated that he was awaiting breakfast. He currently denies any chest pain, nausea, vomiting, diarrhea or constipation. Patient did state that his appetite was okay. Patient is complaining of shortness of breath with activity along with palpitations. He is also stating that he is having a cough with phlegm production. Which he did know what color was however looking at the napkin it was red. He also does have 2 to 3+ pitting edema bilateral lower extremities. 08/31/22? 20:17 This is a 57-year-old male with past medical history significant for morbid obesity, hypertension.? Patient presents to the emergency room after having episode of sudden onset shortness of breath had to sit down and wait 20 minutes before he was able to continue his activity this happened while he was at the parking lot after leaving his car and going inside the store.? Patient denies any lightheadedness, chest pain, cough, sputum production, no orthopnea, no PND, has had bilateral lower extremity edema, no syncope or near syncope n
--- NOTE | 2022-09-02 09:30 | ECG_ITS ---
Measurements Intervals [place] Rate: 86 P: [place]: 0 QRS: -21 QRSD: 89 T: 25 QT: 341 QTc: 409 Interpretive Statements ATRIAL FIBRILLATION LOW QRS VOLTAGE IN PRECORDIAL LEADS POSSIBLE ANTERIOR MYOCARDIAL INFARCTION, PROBABLY OLD ABNORMAL ECG COMPARED TO ECG 09/01/2022 21:52:57 NO SIGNIFICANT CHANGES Electronically Signed On 09-03-2022 16:48:17 CDT by Awais Fitch M.D.
[2022-09-02] MEDS: BENZONATATE 100 MG CAPSULE 200 MG PO ×3 (09:43→17:03)
[2022-09-02] MEDS: guaiFENesin 600 MG/DEXTROMETHORPHAN 30 MG SR TAB 12 HR 1 TAB PO ×2 (10:00→20:28)
--- NOTE | 2022-09-02 14:26 | ECG_ITS ---
Measurements Intervals [place] Rate: 88 P: [place]: 0 QRS: -31 QRSD: 110 T: 15 QT: 378 QTc: 458 Interpretive Statements ATRIAL FIBRILLATION LEFT AXIS DEVIATION LOW QRS VOLTAGE IN PRECORDIAL LEADS ABNORMAL ECG COMPARED TO ECG 09/02/2022 10:44:17 CRITERIA FOR INFARCTION ARE NO LONGER APPRECIATED. Electronically Signed On 09-03-2022 16:50:07 CDT by Awais Fitch M.D.
[2022-09-02] MEDS: AZITHROMYCIN 250 MG TABLET 500 MG PO (14:46)
--- NOTE | 2022-09-02 19:35 | PM.PNCARD ---
Progress Note: A&P Assessment and Plan (1) Atrial fibrillation with rapid ventricular response: Code(s): I48.91 - Unspecified atrial fibrillation Status: Acute Assessment and Plan: Likely secondary to undiagnosed ARPAN and obesity. Continue Diltiazem drip for rate control. [id number] (hypertension and elevated NTproBNP) Started Sotalol 80 mg every 12 hours and start Eliquis 5 mg BID. Stopped Heparin shots. Check EKG 1-2 hours post each Sotalol dose. Continue Diltiazem for rate control, but if cardioverts to sinus rhythm or HR is <70 bpm in atrial fib then may stop Diltiazem. Anticipate 1 more night stay. Since he is still in atrial fib, discussed plan for LUKASZ/DC cardioversion with anesthesia tomorrow and he is agreeable. Keep NPO and will notify team for this in AM. (2) Hypertension: Code(s): I10 - Essential (primary) hypertension Status: Acute Assessment and Plan: Stable. (3) Morbid obesity with BMI of 60.0-69.9, adult: Code(s): E66.01 - Morbid (severe) obesity due to excess calories; Z68.44 - Body mass index [BMI] 60.0-69.9, adult Status: Acute (4) LUNA (dyspnea on exertion): Code(s): R06.09 - Other forms of dyspnea Status: Acute (5) Hypersomnia: Code(s): G47.10 - Hypersomnia, unspecified Status: Acute Assessment and Plan: Will need outpatient sleep study. Subjective Date/time seen: 09/02/22 19:35 Interval history: Denies chest pain or sob. Exam Const: General: cooperative, healthy appearing, comfortable and obese Nutritional Appearance: obese Orientation/consciousness: oriented to person, oriented to place and oriented to time Resp: Auscultation: clear to auscultation bilaterally, no crackles, no rales, no rhonchi and no wheezes Cardio: Rate: regular rate Rhythm: abnormal rhythm Heart sounds: no murmurs Peripheral pulses: dorsalis pedis present Neuro: General: oriented to person, oriented to place and oriented to time Extrem: Right lower extremity: no edema Left lower extremity: no edema Objective Data Vital Signs Vital Signs: Vital Signs - 24 hr 09/01/22 20:20 09/01/22 20:00 09/01/22 20:00 Temperature 97.8 F Pulse Rate 97 97 98 Respiratory Rate 22 H Blood Pressure 103/52 L Pulse Oximetry 95 Oxygen Delivery 09/01/22 20:00 09/01/22 20:00 09/01/22 22:00 Temperature Pulse Rate 95 92 Respiratory Rate Blood Pressure Pulse Oximetry 95 Oxygen Delivery Room Air 09/02/22 00:00 09/02/22 00:00 09/02/22 00:00 Temperature 97.8 F Pulse Rate 82 64 Respiratory Rate 22 H Blood Pressure 119/77 Pulse Oximetry 95 95 Oxygen Delivery Room Air 09/02/22 02:00 09/02/22 00:00 09/02/22 04:00 Temperature Pulse Rate 79 82 65 Respiratory Rate Blood Pressure Pulse Oximetry Oxygen Delivery 09/02/22 04:00 09/02/22 04:00 09/02/22 04:00 Temperature 97.4 F L Pulse Rate 77 65 Respiratory Rate 20 Blood Pressure 117/54 L Pulse Oximetry 95 96 Oxygen Delivery Room Air 09/02/22 06:00 09/02/22 08:00 09/02/22 08:34 Temperature 98.0 F Pulse Rate 78 88 100 Respiratory Rate 12 Blood Pressure 111/76 Pulse Oximetry 95 Oxygen Delivery 09/02/22 08:00 09/02/22 08:00 09/02/22 10:00 Temperature Pulse Rate 93 94 100 Respiratory Rate Blood Pressure Pulse Oximetry 95 Oxygen Delivery Room Air 09/02/22 12:00 09/02/22 12:00 09/02/22 12:00 Temperature 97.5 F L Pulse Rate 92 96 Respiratory Rate 16 Blood Pressure 109/42 L Pulse Oximetry 95 Oxygen Delivery Room Air 09/02/22 14:00 09/02/22 16:00 09/02/22 16:00 Temperature 97.7 F Pulse Rate 95 90 Respiratory Rate 16 Blood Pressure 108/62 Pulse Oximetry 92 Oxygen Delivery Room Air 09/02/22 16:00 09/02/22 18:00 Temperature Pulse Rate 97 99 Respiratory Rate Blood Pressure Pulse Oximetry Oxygen Delivery Intake/Output Intake/Output:
--- NOTE | 2022-09-02 21:04 | PC.NURSE ---
Addendum entered by Adriana Velázquez RN 09/02/22 21:09: QTc 409 after morning dose of Sotalol. Sotalol 80mg PO given at 2026, dose #4. Will obtain follow up EKG. Original Note: QTc interval 423 after morning dose of Sotalol. Sotalol 80mg po given at 2026, dose #4. Will obtain follow up EKG
--- NOTE | 2022-09-02 21:30 | ECG_ITS ---
Measurements Intervals [place] Rate: 100 P: [place]: 0 QRS: -19 QRSD: 94 T: 8 QT: 354 QTc: 457 Interpretive Statements ATRIAL FIBRILLATION WITH RAPID VENTRICULAR RESPONSE LOW QRS VOLTAGE IN PRECORDIAL LEADS ABNORMAL ECG COMPARED TO ECG 09/02/2022 14:29:16 NO SIGNIFICANT CHANGES Electronically Signed On 09-03-2022 16:54:38 CDT by Awais Fitch M.D.
[2022-09-03] VITALS (18 sets, daily range): BP systolic 97–136; BP diastolic 50–97; PULSE 55–115; RESP 12–20; TEMP 35.8–36.6; O2SAT 93–97
--- NOTE | 2022-09-03 | ECG_ITS ---
Measurements Intervals [place] Rate: 92 P: CT: 0 QRS: -25 QRSD: 94 T: -4 QT: 382 QTc: 473 Interpretive Statements ATRIAL FIBRILLATION LOW QRS VOLTAGE IN PRECORDIAL LEADS POSSIBLE INFERIOR MYOCARDIAL INFARCTION , PROBABLY OLD ABNORMAL ECG COMPARED TO ECG 09/03/2022 11:00:32 ATRIAL FIBRILLATION HAS REPLACED SINUS RHYTHM Electronically Signed On 09-04-2022 15:55:41 CDT by Awais Fitch M.D.
--- NOTE | 2022-09-03 | ECHO_ITS ---
Patient Info Name: Saran Pretty Age: 57 years : 1965 Gender: Male Ht: 69 in Wt: 469 lbs BSA: 3.36 m2 HR: 86 bpm Technical Quality: Good Exam Date: 09/03/2022 10:40 AM Exam Location: [facility] Pulmonary Patient Status: Inpatient Admit Date: 09/01/2022 Staff Ordering Physician: Galileo Barrios DO Regional Education Manager: NOELLE Attending Provider: Natalio Johnson MD Referring Physician: Denis HUSSEIN; Exam Type: CA echo transesophageal Study Info Indications I48.1 - Persistent atrial fibrillation Complete two-dimensional, color flow and Doppler transesophageal study is performed. Procedure Details Risks/benefits/alternative to LUKASZ discuss with patient and he gave informed consent. He was monitored electrocardiographically, vitals and pulse ox. He was in atrial fibrillation at 95 bpm, BP 125/80 mmHg, pulse ox 95%. Cetacaine spray x 1 to posterior oropharynx. Sedation provided by anesthesiology service. LUKASZ probe advanced into esophagus without incident. Multiple images obtain in esophagus. LUKASZ probe without drawn and no bleed noted on tip. No complications. Summary 1. LUKASZ performed. 2. Left ventricular chamber dimension is normal. 3. Left ventricular systolic function is normal with an ejection fraction of 55-60% by visual estimation. 4. There is mildly increased left ventricular wall thickness. 5. The left ventricular diastolic function is indeterminate as it was not assessed. 6. There is mild aortic valve sclerosis. 7. There is mild to moderate mitral valve regurgitation. 8. There is trace tricuspid valve regurgitation. Left Ventricle Left ventricular systolic function is normal with an ejection fraction of 55-60% by visual estimation. The left ventricular diastolic function is indeterminate as it was not assessed. Left ventricular chamber dimension is normal. There is mildly increased left ventricular wall thickness. LUKASZ performed. Right Ventricle Right ventricular chamber dimension is normal. Right ventricular systolic function is normal. Left Atria Left atrial chamber dimension is normal. Right Atria Right atrial chamber dimension is normal. Atrial Septum Intact interatrial septum visualized by 2D and color flow imaging. Atrial Appendage There is no thrombus visualized in the left atrial appendage. Aortic Valve The aortic valve is trileaflet. There is mild aortic valve sclerosis. There is no aortic valve stenosis. There is no aortic valve regurgitation. Pulmonic Valve There is no pulmonic regurgitation. Mitral Valve There is no mitral valve stenosis. There is mild to moderate mitral valve regurgitation. Tricuspid Valve There is trace tricuspid valve regurgitation. RVPS is not measured. Pericardium/Pleural There is no pericardial effusion. Inferior Vena Cava Inferior vena cava is not well visualized. Aorta The aortic root size at the sinus of Valsalva is normal. Report Signatures
--- NOTE | 2022-09-03 | ECG_ITS ---
Measurements Intervals [place] Rate: 67 P: 40 RI: 184 QRS: -29 QRSD: 97 T: 11 QT: 395 QTc: 418 Interpretive Statements SINUS RHYTHM BASELINE ARTIFACT LOW QRS VOLTAGE IN PRECORDIAL LEADS POSSIBLE INFERIOR MYOCARDIAL INFARCTION, PROBABLY OLD ABNORMAL ECG COMPARED TO ECG 09/03/2022 09:42:02 SINUS RHYTHM NOW PRESENT Electronically Signed On 09-03-2022 17:01:42 CDT by Awais Fitch M.D.
[2022-09-03 05:25] LABS: Basophils Percent Auto 0.6 % (0.2-1.2); Eosinophils Absolute Auto 0.1 K/mm3 (0-0.3); Eosinophils Percent Auto 1.2 % (0-4.4); Hematocrit 46.5 % (42.0-52.0); Hemoglobin 14.4 g/dL (14.0-18.0); Immature Granulocyte Absolute 0.03 K/mm3 (0.00-0.031); Immature Granulocyte Percent A 0.5 % (0-0.5); Immature Platelet Fraction Pct 14.7 % (0.9-11.2); Lymphocytes Absolute Auto 0.87 K/mm3 (0.9-3.2); Lymphocytes Percent Auto 13.6 % (18.3-44.2); Mean Corpuscular Hemoglobin 25.7 pg (26-34); Mean Corpuscular Volume 82.9 fl (80-100); Mean Platelet Volume 12.4 fl (7.4-10.4); Monocytes Absolute Auto 1.1 K/mm3 (0.1-0.6); Monocytes Percent Auto 17.2 % (2.6-8.5); Neutrophils Absolute Auto 4.3 K/mm3 (1.3-6.7); Neutrophils Percent Auto 66.9 % (45.5-73.1); Platelet Count Result 161 k/mm3 (150-375); Red Blood Count 5.61 M/mm3 (4.6-6.20); Red Cell Distribution Width 19.1 % (11.5-14.5); White Blood Count 6.4 K/mm3 (4.5-10.0)
[2022-09-03 05:45] LABS: Alanine Aminotransferase 26 U/L (6-50); Albumin Level 4.1 g/dL (3.5-5.1); Alkaline Phosphatase 78 U/L (38-126); Anion Gap 6 mmol/L (8-16); Aspartate Amino Transferase 25 U/L (17-59); Blood Urea Nitrogen 15 mg/dL (9-20); CRP 3.3 mg/dL (<1.0); Calcium 8.5 mg/dL (8.4-10.2); Carbon Dioxide 32 mmol/L (22-30); Chloride 98 mmol/L (98-107); Estimated CRCL calculation 162 ml/min; Estimated Glomerular Filt Rate > 60; Glucose 108 mg/dL (65-110); Magnesium 2.2 mg/dL (1.6-2.3); Potassium 3.7 mmol/L (3.4-5.0); Sodium 136 mmol/L (137-145)
--- NOTE | 2022-09-03 07:49 | PM.PNCARD ---
Progress Note: A&P Assessment and Plan (1) Atrial fibrillation with rapid ventricular response: Code(s): I48.91 - Unspecified atrial fibrillation Status: Acute Assessment and Plan: Likely secondary to undiagnosed ARPAN and obesity. Continue Diltiazem drip for rate control. [id number] (hypertension and elevated NTproBNP) Started Sotalol 80 mg every 12 hours and start Eliquis 5 mg BID. Stopped Heparin shots. Check EKG 1-2 hours post each Sotalol dose. Tolerating Sotalol well. Continue Diltiazem for rate control, but if cardioverts to sinus rhythm or HR is <70 bpm in atrial fib then may stop Diltiazem. Since he is still in atrial fib, discussed plan for LUKASZ/DC cardioversion with anesthesia later this morning and he is agreeable. Keep NPO for procedure. Had DC cardioversion and was successful at 3rd attempt, however within 10 minutes he had recurrence of atrial fibrillation. Due to this, we will continue with Sotalol and rate control until he gets sleep apnea evaluated and started on treatment for that. (2) Hypertension: Code(s): I10 - Essential (primary) hypertension Status: Acute Assessment and Plan: Stable. (3) Morbid obesity with BMI of 60.0-69.9, adult: Code(s): E66.01 - Morbid (severe) obesity due to excess calories; Z68.44 - Body mass index [BMI] 60.0-69.9, adult Status: Acute (4) LUNA (dyspnea on exertion): Code(s): R06.09 - Other forms of dyspnea Status: Acute (5) Hypersomnia: Code(s): G47.10 - Hypersomnia, unspecified Status: Acute Assessment and Plan: Will need outpatient sleep study. Subjective Date/time seen: 09/03/22 07:49 Interval history: Denies chest pain or sob. Exam Const: General: cooperative, healthy appearing, comfortable and obese Nutritional Appearance: obese Orientation/consciousness: oriented to person, oriented to place and oriented to time Resp: Auscultation: clear to auscultation bilaterally, no crackles, no rales, no rhonchi and no wheezes Cardio: Rate: regular rate and tachycardic Rhythm: abnormal rhythm Heart sounds: no murmurs Peripheral pulses: dorsalis pedis present Neuro: General: oriented to person, oriented to place and oriented to time Extrem: Right lower extremity: no edema Left lower extremity: no edema Objective Data Vital Signs Vital Signs: Vital Signs - 24 hr 09/02/22 08:00 09/02/22 08:34 09/02/22 08:00 Temperature 98.0 F Pulse Rate 88 100 93 Respiratory Rate 12 Blood Pressure 111/76 Pulse Oximetry 95 95 Oxygen Delivery Room Air 09/02/22 08:00 09/02/22 10:00 09/02/22 12:00 Temperature Pulse Rate 94 100 92 Respiratory Rate Blood Pressure Pulse Oximetry Oxygen Delivery 09/02/22 12:00 09/02/22 12:00 09/02/22 14:00 Temperature 97.5 F L Pulse Rate 96 95 Respiratory Rate 16 Blood Pressure 109/42 L Pulse Oximetry 95 Oxygen Delivery Room Air 09/02/22 16:00 09/02/22 16:00 09/02/22 16:00 Temperature 97.7 F Pulse Rate 90 97 Respiratory Rate 16 Blood Pressure 108/62 Pulse Oximetry 92 Oxygen Delivery Room Air 09/02/22 18:00 09/02/22 20:27 09/02/22 20:00 Temperature 97.6 F Pulse Rate 99 96 100 Respiratory Rate 20 Blood Pressure 107/63 Pulse Oximetry 95 Oxygen Delivery 09/02/22 20:00 09/02/22 20:00 09/02/22 22:00 Temperature Pulse Rate 112 H 82 Respiratory Rate Blood Pressure Pulse Oximetry 95 Oxygen Delivery Room Air 09/02/22 23:09 09/03/22 00:00 09/03/22 00:00 Temperature 97.8 F Pulse Rate 89 98 Respiratory Rate 20 Blood Pressure 105/58 L Pulse Oximetry 96 96 Oxygen Delivery Room Air 09/03/22 04:00 09/03/22 02:00 09/03/22 04:00 Temperature 97.8 F Pulse Rate 68 98 109 H Respiratory Rate 20 Blood Pressure 135/70 Pulse Oximetry 97 Oxygen Delivery 09/03/22 04:00 09/03/22 06:00 Temperature Pulse Rate 90 Respiratory Rate Blood Pre
[2022-09-03] MEDS: SOTALOL HCL 80 MG TABLET PO ×2 (08:16→20:21)
[2022-09-03] MEDS: APIXABAN 5 MG TABLET PO ×2 (08:17→20:20)
[2022-09-03] MEDS: BENZONATATE 100 MG CAPSULE 200 MG PO ×3 (08:17→16:52)
[2022-09-03] MEDS: AZITHROMYCIN 250 MG TABLET PO (08:17)
[2022-09-03] MEDS: ATORVASTATIN 40 MG TABLET PO (08:17)
[2022-09-03] MEDS: guaiFENesin 600 MG/DEXTROMETHORPHAN 30 MG SR TAB 12 HR 1 TAB PO ×2 (08:18→20:21)
[2022-09-03] MEDS: lisinopriL 10 MG TABLET PO (08:18)
--- NOTE | 2022-09-03 08:30 | ECG_ITS ---
Measurements Intervals [place] Rate: 94 P: [place]: 0 QRS: -26 QRSD: 104 T: 0 QT: 364 QTc: 456 Interpretive Statements ATRIAL FIBRILLATION LOW QRS VOLTAGE IN PRECORDIAL LEADS CANNOT RULE OUT iNFERIOR MYOCARDIAL INFARCTION, OF INDETERMINATE AGE ABNORMAL ECG COMPARED TO ECG 09/02/2022 21:57:43 POSSIBLE mYOCARDIAL INFARCT FINDING NOW PRESENT Electronically Signed On 09-03-2022 17:00:04 CDT by Awais Fitch M.D.
--- NOTE | 2022-09-03 11:21 | SUR.PHASEII ---
pt shocked 3 times to try to convert from A-fib to NSR. attempt 3 was successful, EKG confirmed. 15 minutes later RN noticed a faster rate. EKG taken to confirm pt was in A-fib again. called and updated.
--- NOTE | 2022-09-03 11:30 | P.PCNCVR_ITS ---
Cardioversion Cardioversion Date of procedure: 09/03/22 Procedure: DC Cardioversion Pre-op diagnosis: Atrial fibrillation Indications: Symptomatic atrial fibrillation Description of procedure: LUKASZ was performed which showed no Left atrial or left atrial appendage thrombus. Defibrillator pads placed at anterior and posterior chest. Immediately, attempt at cardioversion with 200 J biphasic synchronized energy was unsuccessful x2. Then energy level increased to 300 J and it was successful at restoring sinus rhythm at 70 bpm. No complications. Sedation: As per anesthesiology service. Conclusion: 1. Successful DC cardioversion from atrial fibrillation to sinus rhythm. 2. However, within 10 minutes patient had recurrence of atrial fibrillation. [facility] [place] Billing for Cardioversion: Cardioversion
--- NOTE | 2022-09-03 12:15 | P.PNIM_ITS ---
Progress Note: A&P Assessment and Plan (1) Atrial fibrillation with rapid ventricular response: Code(s): I48.91 - Unspecified atrial fibrillation Status: Acute Assessment and Plan: * heart rate currently in the 110-120s * rhythm appears to still be in AFib * HR has been controlled, however was noted to be in the 130-150s throughout the night * Cardizem drip DC'd at this time * EKG (09/02/22) a. fib rate of 82 QTc 446 * cardiology on board * sotalol continued * EKG for QTc monitoring * echo from 03/29 shows EF of 60 65% with grade 1 diastolic dysfunction * Eliquis continued * continue tele monitor * LUKASZ and cardioversion was preformed, however unsuccessful in maintaining the patient in SR * Will need outpatient sleep study (2) Severe obstructive sleep apnea: Code(s): G47.33 - Obstructive sleep apnea (adult) (pediatric) Status: Acute Assessment and Plan: * Unclear if use of CPAP at nighttime * Will need outpatient sleep study (3) Morbid obesity with BMI of 60.0-69.9, adult: Code(s): E66.01 - Morbid (severe) obesity due to excess calories; Z68.44 - Body mass index [BMI] 60.0-69.9, adult Status: Acute Assessment and Plan: * Lifestyle and diet modifications * consider dietitian consult (4) Hypertension: Code(s): I10 - Essential (primary) hypertension Status: Acute Assessment and Plan: * current blood pressure 127/62 * continue lisinopril and hydrochlorothiazide * trend blood pressure * adjust therapy as indicated (5) CHF (congestive heart failure): Code(s): I50.9 - Heart failure, unspecified Status: Acute Assessment and Plan: * echo indicates grade 1 diastolic dysfunction * Appears to be acute on chronic diastolic heart failure in exacerbation * bilateral lower extremities exhibit 2+ pitting edema * trend urine output * trend daily weight * initiate Lasix 40 mg b.i.d. total of 4 doses, completed * consider ajit erickson (6) Mixed hyperlipidemia: Code(s): E78.2 - Mixed hyperlipidemia Status: Acute Assessment and Plan: * cholesterol 207, LDL 135, HDL 45, triglycerides 148 * start atorvastatin 40 mg daily Time Spent With Patient Time: 51 minutes Time with patient: Greater than 35 minutes Subjective Date/time seen: 09/03/221214 Interval history: 09/03/221214 Patient was sitting in the chair. Patient just got back from the cardiac cath technician. Patient underwent a LUKASZ and cardioversion today however was unsuccessful and is currently in AFib. Spoke with Cardiology who is okay with patient being discharged however after doing a cardiac review patient was noted to be in the 130s to 160s overnight since 7:00 p.m.. Currently patient is denying any chest pain, shortness a breath, nausea, vomiting, diarrhea constipation. He also stated the cough has been better as well. 09/02/22844 patient's only complaint today is cough. He stated that it is been clear and green and yellow. Chest x-ray was performed showed pulmonary vascular redistribution suggesting possible mild congestive changes. Patient also stated he is unable lay flat as he goes into a coughing fit. He denies any other chest pain, shortness a breath, nausea, vomiting, diarrhea constip
--- NOTE | 2022-09-03 12:15 | PM.IMPN ---
Progress Note: A&P Assessment and Plan (1) Atrial fibrillation with rapid ventricular response: Code(s): I48.91 - Unspecified atrial fibrillation Status: Acute Assessment and Plan: heart rate currently in the 110-120s rhythm appears to still be in AFib HR has been controlled, however was noted to be in the 130-150s throughout the night Cardizem drip DC'd at this time EKG (09/02/22) a. fib rate of 82 QTc 446 cardiology on board sotalol continued EKG for QTc monitoring echo from 03/29 shows EF of 60 65% with grade 1 diastolic dysfunction Eliquis continued continue tele monitor LUKASZ and cardioversion was preformed, however unsuccessful in maintaining the patient in SR Will need outpatient sleep study (2) Severe obstructive sleep apnea: Code(s): G47.33 - Obstructive sleep apnea (adult) (pediatric) Status: Acute Assessment and Plan: Unclear if use of CPAP at nighttime Will need outpatient sleep study (3) Morbid obesity with BMI of 60.0-69.9, adult: Code(s): E66.01 - Morbid (severe) obesity due to excess calories; Z68.44 - Body mass index [BMI] 60.0-69.9, adult Status: Acute Assessment and Plan: Lifestyle and diet modifications consider dietitian consult (4) Hypertension: Code(s): I10 - Essential (primary) hypertension Status: Acute Assessment and Plan: current blood pressure 127/62 continue lisinopril and hydrochlorothiazide trend blood pressure adjust therapy as indicated (5) CHF (congestive heart failure): Code(s): I50.9 - Heart failure, unspecified Status: Acute Assessment and Plan: echo indicates grade 1 diastolic dysfunction Appears to be acute on chronic diastolic heart failure in exacerbation bilateral lower extremities exhibit 2+ pitting edema trend urine output trend daily weight initiate Lasix 40 mg b.i.d. total of 4 doses, completed consider ajit erickson (6) Mixed hyperlipidemia: Code(s): E78.2 - Mixed hyperlipidemia Status: Acute Assessment and Plan: cholesterol 207, LDL 135, HDL 45, triglycerides 148 start atorvastatin 40 mg daily Time Spent With Patient Time: 51 minutes Time with patient: Greater than 35 minutes Subjective Date/time seen: 09/03/22 1215 Interval history: 09/03/22 121 Patient was sitting in the chair. Patient just got back from the labor and delivery registered nurse. Patient underwent a LUKASZ and cardioversion today however was unsuccessful and is currently in AFib. Spoke with Cardiology who is okay with patient being discharged however after doing a cardiac review patient was noted to be in the 130s to 160s overnight since 7:00 p.m.. Currently patient is denying any chest pain, shortness a breath, nausea, vomiting, diarrhea constipation. He also stated the cough has been better as well. 09/02/22 0845 patient's only complaint today is cough. He stated that it is been clear and green and yellow. Chest x-ray was performed showed pulmonary vascular redistribution suggesting possible mild congestive changes. Patient also stated he is unable lay flat as he goes into a coughing fit. He denies any other chest pain, shortness a breath, nausea, vomiting, diarrhea constipation. He also stated that he is urinating okay as well. 09/01/22 0615 Patient was sitting on the side the bed. Patient stated that he was awaiting breakfast. He currently denies any chest pain, nausea, vomiting, diarrhea or constipation. Patient did state that his appetite was okay. Patient is complaining of shortness of breath with activity along with palpitations. He is also stating that he is having a cough with phlegm production. Which he did know what color was however looking at the napkin it was red. He also does have 2 to 3+ pitting edema bilateral lower extremities.
[2022-09-03] MEDS: TOLNAFTATE 1% POWDER 45 GM BTL 1 APPLIC TOPICAL ×2 (16:53→20:22)
[2022-09-04] VITALS: PULSE 97
--- NOTE | 2022-09-04 02:14 | PC.NURSE ---
This patient, Saran Pretty, was transferred to [[id number] ] on 09/04/22 at 0200. Personal belongings sent with patient. Report given to [ Gem GARG]. Appropriate documentation sent with patient.
--- NOTE | 2022-09-04 02:15 | PC.NURSE ---
This patient, Saran Pretty, was received from [[id number]] on 09/04/22 at 0215. Patient/family oriented to unit policies and routines
[2022-09-04 04:00] VITALS: PULSE 74
[2022-09-04 04:41] VITALS: BP 116/73; PULSE 80; RESP 18; TEMP 36.6; O2SAT 97
[2022-09-04 06:38] LABS: Basophils Percent Auto 0.8 % (0.2-1.2); Eosinophils Absolute Auto 0.1 K/mm3 (0-0.3); Eosinophils Percent Auto 0.9 % (0-4.4); Hematocrit 45.7 % (42.0-52.0); Hemoglobin 13.9 g/dL (14.0-18.0); Immature Granulocyte Absolute 0.02 K/mm3 (0.00-0.031); Immature Granulocyte Percent A 0.4 % (0-0.5); Lymphocytes Absolute Auto 0.84 K/mm3 (0.9-3.2); Lymphocytes Percent Auto 15.8 % (18.3-44.2); Mean Corpuscular HGB Conc 30.4 g/dl (32-36); Mean Corpuscular Hemoglobin 25.1 pg (26-34); Mean Corpuscular Volume 82.5 fl (80-100); Mean Platelet Volume 11.8 fl (7.4-10.4); Monocytes Absolute Auto 0.9 K/mm3 (0.1-0.6); Monocytes Percent Auto 16.7 % (2.6-8.5); Neutrophils Absolute Auto 3.5 K/mm3 (1.3-6.7); Neutrophils Percent Auto 65.4 % (45.5-73.1); Platelet Count Result 140 k/mm3 (150-375); Red Blood Count 5.54 M/mm3 (4.6-6.20); Red Cell Distribution Width 18.3 % (11.5-14.5); White Blood Count 5.3 K/mm3 (4.5-10.0)
[2022-09-04 06:47] LABS: Alanine Aminotransferase 26 U/L (6-50); Albumin Level 4.1 g/dL (3.5-5.1); Alkaline Phosphatase 78 U/L (38-126); Anion Gap 5 mmol/L (8-16); Aspartate Amino Transferase 27 U/L (17-59); Blood Urea Nitrogen 14 mg/dL (9-20); Calcium 8.4 mg/dL (8.4-10.2); Carbon Dioxide 32 mmol/L (22-30); Chloride 101 mmol/L (98-107); Estimated CRCL calculation 183 ml/min; Estimated Glomerular Filt Rate > 60; Glucose 108 mg/dL (65-110); Magnesium 2.3 mg/dL (1.6-2.3); Potassium 3.8 mmol/L (3.4-5.0); Sodium 138 mmol/L (137-145)
[2022-09-04 08:00] VITALS: PULSE 87
--- NOTE | 2022-09-04 08:16 | PM.PNCARD ---
Progress Note: A&P Assessment and Plan (1) Atrial fibrillation with rapid ventricular response: Code(s): I48.91 - Unspecified atrial fibrillation Status: Acute Assessment and Plan: Likely secondary to undiagnosed ARPAN and obesity. [id number] 2 (hypertension and elevated NTproBNP) On Sotalol 80 mg every 12 hours and start Eliquis 5 mg BID. Had DC cardioversion and was successful at 3rd attempt, however within 10 minutes he had recurrence of atrial fibrillation. Due to this, we will continue with Sotalol and rate control until he gets sleep apnea evaluated and started on treatment for that. (2) Hypertension: Code(s): I10 - Essential (primary) hypertension Status: Acute Assessment and Plan: Stable. (3) Morbid obesity with BMI of 60.0-69.9, adult: Code(s): E66.01 - Morbid (severe) obesity due to excess calories; Z68.44 - Body mass index [BMI] 60.0-69.9, adult Status: Acute (4) LUNA (dyspnea on exertion): Code(s): R06.09 - Other forms of dyspnea Status: Acute (5) Hypersomnia: Code(s): G47.10 - Hypersomnia, unspecified Status: Acute Assessment and Plan: Will need outpatient sleep study. (6) Diastolic dysfunction: Code(s): I51.89 - Other ill-defined heart diseases Status: Acute Assessment and Plan: Has edema of legs. Increase Furosemide 40 mg PO BID. (7) Bronchitis: Code(s): J40 - Bronchitis, not specified as acute or chronic Status: Acute Assessment and Plan: On antibiotics. Manage per hospitalist. Subjective Date/time seen: 09/04/22 08:16 Interval history: Denies chest pain or sob. Exam Const: General: cooperative, healthy appearing, comfortable and obese Nutritional Appearance: obese Orientation/consciousness: oriented to person, oriented to place and oriented to time Resp: Auscultation: no crackles, no rales, rhonchi and wheezes Cardio: Rate: regular rate and tachycardic Rhythm: abnormal rhythm Heart sounds: no murmurs Peripheral pulses: dorsalis pedis present Neuro: General: oriented to person, oriented to place and oriented to time Extrem: Right lower extremity: edema Left lower extremity: edema Other: Moderate edema of legs Objective Data Vital Signs Vital Signs: Vital Signs - 24 hr 09/03/22 10:40 09/03/22 10:50 09/03/22 10:55 Temperature Pulse Rate 97 93 95 Respiratory Rate 14 12 14 Blood Pressure 125/71 106/59 L 108/62 Pulse Oximetry 97 94 96 Oxygen Delivery Nasal Cannula Nasal Cannula Nasal Cannula Oxygen Flow Rate 6 6 6 09/03/22 11:05 09/03/22 11:35 09/03/22 10:00 Temperature Pulse Rate 67 96 97 Respiratory Rate 14 15 Blood Pressure 105/57 L 127/62 Pulse Oximetry 94 94 Oxygen Delivery Room Air Room Air Oxygen Flow Rate 09/03/22 11:20 09/03/22 12:00 09/03/22 14:00 Temperature Pulse Rate 90 84 101 H Respiratory Rate 16 Blood Pressure 97/69 L Pulse Oximetry 93 Oxygen Delivery Room Air Oxygen Flow Rate 09/03/22 12:00 09/03/22 16:00 09/03/22 16:00 Temperature 96.4 F L 96.8 F L Pulse Rate 82 100 71 Respiratory Rate 20 18 Blood Pressure 136/97 H 110/50 L Pulse Oximetry 96 97 Oxygen Delivery Oxygen Flow Rate 09/03/22 20:21 09/03/22 20:00 09/03/22 20:00 Temperature Pulse Rate 115 H 99 Respiratory Rate Blood Pressure Pulse Oximetry Oxygen Delivery Room Air Oxygen Flow Rate 09/03/22 20:00 09/04/22 00:00 09/04/22 04:41 Temperature 97.3 F L 97.9 F Pulse Rate 87 97 80 Respiratory Rate 16 18 Blood Pressure 105/69 116/73 Pulse Oximetry 96 97 Oxygen Delivery Oxygen Flow Rate 09/04/22 04:00 Temperature Pulse Rate 74 Respiratory Rate Blood Pressure Pulse Oximetry Oxygen Delivery Oxygen Flow Rate Intake/Output Intake/Output: Intake & Output 09/01/22 09/02/22 09/03/22 09/04/22 23:59 23:59 23:59 23:59 Intake Total 2490 6290 2040 Output Total 700
--- NOTE | 2022-09-04 08:54 | PM.DS ---
DS: Admitting Diagnosis Discharge Date 09/04/22 0900 Admitting Diagnosis AFib RVR DS: Discharge Diagnosis Discharge Diagnosis (1) Atrial fibrillation with rapid ventricular response: Code(s): I48.91 - Unspecified atrial fibrillation Status: Acute Assessment and Plan: heart rate currently in the 110-120s rhythm appears to still be in AFib HR has been controlled, however was noted to be in the 130-150s throughout the night Cardizem drip DC'd at this time EKG (09/02/22) a. fib rate of 82 QTc 446 cardiology on board sotalol continued EKG for QTc monitoring echo from 03/29 shows EF of 60 65% with grade 1 diastolic dysfunction Eliquis continued continue tele monitor LUKASZ and cardioversion was preformed, however unsuccessful in maintaining the patient in SR Will need outpatient sleep study (2) Severe obstructive sleep apnea: Code(s): G47.33 - Obstructive sleep apnea (adult) (pediatric) Status: Acute Assessment and Plan: Unclear if use of CPAP at nighttime Will need outpatient sleep study (3) Morbid obesity with BMI of 60.0-69.9, adult: Code(s): E66.01 - Morbid (severe) obesity due to excess calories; Z68.44 - Body mass index [BMI] 60.0-69.9, adult Status: Acute Assessment and Plan: Lifestyle and diet modifications consider dietitian consult (4) Hypertension: Code(s): I10 - Essential (primary) hypertension Status: Acute Assessment and Plan: current blood pressure 127/62 continue lisinopril and hydrochlorothiazide trend blood pressure adjust therapy as indicated (5) CHF (congestive heart failure): Code(s): I50.9 - Heart failure, unspecified Status: Acute Assessment and Plan: echo indicates grade 1 diastolic dysfunction Appears to be acute on chronic diastolic heart failure in exacerbation bilateral lower extremities exhibit 2+ pitting edema trend urine output trend daily weight initiate Lasix 40 mg b.i.d. total of 4 doses, completed consider ajit erickson (6) Mixed hyperlipidemia: Code(s): E78.2 - Mixed hyperlipidemia Status: Acute Assessment and Plan: cholesterol 207, LDL 135, HDL 45, triglycerides 148 start atorvastatin 40 mg daily DS: Summary Hospital Course Hospital Course: Patient is a 57-year-old male with a past medical history of morbid obesity, hypertension, ARPAN who presented to the ED with complaints of sudden onset of shortness of breath. Upon arrival to the emergency room patient was noted to be in AFib RVR with heart rate 136. Patient was then started on Cardizem and Cardiology was consulted. Echo from 03/29 showed an EF of 60-65% with grade 1 diastolic dysfunction. Cardiology started the patient on sotalol and Eliquis. Patient did go for a LUKASZ and cardioversion however was unsuccessful in maintaining sinus rhythm. It was determined the patient will most likely need an outpatient sleep study. Patient was also complaining of a cough along with unable to lay flat. Patient was given 4 doses of IV Lasix. Chest x-ray from 09/02/2022 showed pulmonary vascular redistribution with congestive changes. Patient was started on azithromycin for further support and comfort. Patient has been doing better with his cough. He has also been switched to guaifenesin DM q.12. Patient was also noted to be come tachycardic on 09/02 overnight through 09/03 in the morning. Patient's heart rate had maintained into the 130s to 150s. Tele monitor reviewed did reveal better heart rate control overnight. Patient is to get a sleep study and will need to follow up with Cardiology in 1 week. Patient is stable and feels ready to be discharged at this time. Labs and vital signs remained stable as well. Status at Discharge Functional status at discharge: independent ambulation Tod
--- NOTE | 2022-09-04 08:54 | P.DS_ITS ---
DS: Admitting Diagnosis Discharge Date 09/04/22 0900 Admitting Diagnosis AFib RVR DS: Discharge Diagnosis Discharge Diagnosis (1) Atrial fibrillation with rapid ventricular response: Code(s): I48.91 - Unspecified atrial fibrillation Status: Acute Assessment and Plan: * heart rate currently in the 110-120s * rhythm appears to still be in AFib * HR has been controlled, however was noted to be in the 130-150s throughout the night * Cardizem drip DC'd at this time * EKG (09/02/22) a. fib rate of 82 QTc 446 * cardiology on board * sotalol continued * EKG for QTc monitoring * echo from 03/29 shows EF of 60 65% with grade 1 diastolic dysfunction * Eliquis continued * continue tele monitor * LUKASZ and cardioversion was preformed, however unsuccessful in maintaining the patient in SR * Will need outpatient sleep study (2) Severe obstructive sleep apnea: Code(s): G47.33 - Obstructive sleep apnea (adult) (pediatric) Status: Acute Assessment and Plan: * Unclear if use of CPAP at nighttime * Will need outpatient sleep study (3) Morbid obesity with BMI of 60.0-69.9, adult: Code(s): E66.01 - Morbid (severe) obesity due to excess calories; Z68.44 - Body mass index [BMI] 60.0-69.9, adult Status: Acute Assessment and Plan: * Lifestyle and diet modifications * consider dietitian consult (4) Hypertension: Code(s): I10 - Essential (primary) hypertension Status: Acute Assessment and Plan: * current blood pressure 127/62 * continue lisinopril and hydrochlorothiazide * trend blood pressure * adjust therapy as indicated (5) CHF (congestive heart failure): Code(s): I50.9 - Heart failure, unspecified Status: Acute Assessment and Plan: * echo indicates grade 1 diastolic dysfunction * Appears to be acute on chronic diastolic heart failure in exacerbation * bilateral lower extremities exhibit 2+ pitting edema * trend urine output * trend daily weight * initiate Lasix 40 mg b.i.d. total of 4 doses, completed * consider ajit erickson (6) Mixed hyperlipidemia: Code(s): E78.2 - Mixed hyperlipidemia Status: Acute Assessment and Plan: * cholesterol 207, LDL 135, HDL 45, triglycerides 148 * start atorvastatin 40 mg daily DS: Summary Hospital Course Hospital Course: Patient is a 57-year-old male with a past medical history of morbid obesity, hypertension, ARPAN who presented to the ED with complaints of sudden onset of shortness of breath. Upon arrival to the emergency room patient was noted to be in AFib RVR with heart rate 136. Patient was then started on Cardizem and Cardiology was consulted. Echo from 03/29 showed an EF of 60-65% with grade 1 diastolic dysfunction. Cardiology started the patient on sotalol and Eliquis. Patient did go for a LUKASZ and cardioversion however was unsuccessful in maintaining sinus rhythm. It was determined the patient will most likely need an outpatient sleep study. Patient was also complaining of a cough along with unable to lay flat. Patient was given 4 doses of IV Lasix. Chest x-ray from 09/02/2022 showed pulmonary vascular redistribution with congestive changes. Patient was started on azithromycin for further support and comfort. Patient has been doing b
[2022-09-04 09:10] VITALS: PULSE 93
[2022-09-04] MEDS: AZITHROMYCIN 250 MG TABLET PO (09:10)
[2022-09-04] MEDS: lisinopriL 10 MG TABLET PO (09:10)
[2022-09-04] MEDS: ATORVASTATIN 40 MG TABLET PO (09:10)
[2022-09-04] MEDS: TOLNAFTATE 1% POWDER 45 GM BTL 1 APPLIC TOPICAL (09:10)
[2022-09-04] MEDS: SOTALOL HCL 80 MG TABLET PO (09:10)
[2022-09-04] MEDS: hydroCHLOROthiazide 12.5 MG CAPSULE PO (09:10)
[2022-09-04] MEDS: FUROSEMIDE 40 MG TABLET PO (09:10)
[2022-09-04] MEDS: APIXABAN 5 MG TABLET PO (09:10)
[2022-09-04] MEDS: guaiFENesin 600 MG/DEXTROMETHORPHAN 30 MG SR TAB 12 HR 1 TAB PO (09:10)
[2022-09-04] MEDS: BENZONATATE 100 MG CAPSULE 200 MG PO (09:10)
[2022-09-04 12:00] VITALS: PULSE 78
--- NOTE | 2022-09-04 14:30 | P.PNAN_ITS ---
Anes - Prog Note Post-Op Date/Time: 09/04/22 14:30 Cardiovascular status: normal Respiratory status: normal Airway patency: baseline Mental status: baseline Post-Op hydration status: normal Vital Signs: Last Vital Signs Temp 97.9 F 09/04/22 04:41 Pulse 78 09/04/22 12:00 Resp 18 09/04/22 04:41 BP 116/73 09/04/22 04:41 Pulse Ox 97 09/04/22 04:41 O2 Del Method Room Air 09/04/22 08:45 O2 Flow Rate 6 09/03/22 10:55 Pain Score (VAS): 0/10 I/O: Intake & Output 09/03/22 09/04/22 09/04/22 23:59 07:59 15:59 Intake Total 1550 600 Output Total 900 Balance 650 600 Laboratory Tests 09/04/22 06:28 09/04/22 06:28 09/04/22 09/04/22 06:28 06:28 WBC 5.3 RBC 5.54 Hgb 13.9 L Hct 45.7 MCV 82.5 MCH 25.1 L MCHC 30.4 L RDW 18.3 H Plt Count 140 L MPV 11.8 H Immature Gran % (Auto) 0.4 Neut % (Auto) 65.4 Lymph % (Auto) 15.8 L [place] % (Auto) 16.7 H Eos % (Auto) 0.9 Baso % (Auto) 0.8 Lymph # (Auto) 0.84 L [place] # (Auto) 0.9 H Eos # (Auto) 0.1 Baso # (Auto) 0.0 Abs Immat Gran (auto) 0.02 Absolute Neuts (auto) 3.5 Absolute Nucleated RBC 0.0 Nucleated RBC % 0.0 Sodium 138 Potassium 3.8 Chloride 101 Carbon Dioxide 32 H Anion Gap 5 L BUN 14 Creatinine 0.70 Estim Creat Clear Calc 183 Estimated GFR > 60 Glucose 108 Calcium 8.4 Magnesium 2.3 Total Bilirubin 1.0 AST 27 ALT 26 Alkaline Phosphatase 78 Total Protein 8.0 Albumin 4.1 Post-procedural complaints: none Patient Feedback: Patient satisfied with anesthetic care.
== END 2022-09-04 13:30 | disposition home or self-care (01) | DRG 308 ==
LOC: ANHED 13:51 → ANHIMU 17:28 → ANH3MED 09-04 09:04 → ANHIMU 09-05 10:50
PROVIDERS: Internal Medicine Cardiovascular Disease; Admitting Provider Chiropractor; Emergency Provider Emergency Medicine; PCP Family Medicine; Visit Provider Nurse Practitioner
PROC: 5A2204Z Restoration of Cardiac Rhythm, Single (ICD-10-PCS; CPT 93312; principal; 2022-09-03 10:30)
PROC: 5A2204Z Restoration of Cardiac Rhythm, Single (ICD-10-PCS; 2022-09-03 10:30)
DX: I48.91 Unspecified atrial fibrillation (principal); I50.33 Acute on chronic diastolic (congestive) heart failure; Z68.44 Body mass index [BMI] 60.0-69.9, adult; G47.33 Obstructive sleep apnea (adult) (pediatric); E66.01 Morbid (severe) obesity due to excess calories; I11.0 Hypertensive heart disease with heart failure; E78.2 Mixed hyperlipidemia; J40 Bronchitis, not specified as acute or chronic; Z20.822 Contact with and (suspected) exposure to COVID-19; Z87.891 Personal history of nicotine dependence; Z79.899 Other long term (current) drug therapy
CPT/HCPCS: 36415; 71045; 71046; 80053; 83735; 83880; 84484; 85025; 85055; 85610; 86140; 87636; 92960; 93005; 93312; 93320; 93325; 96365; 96366; 96372; 96375; 96376; 99285; A9270; G0378; J1644; J1940; J2704

== ENCOUNTER 2022-10-24 08:15 | Outpatient (CLI) | payer BC, SELFPAY ==
[2022-11-08 14:51] VITALS: BMI 63.5
--- NOTE | 2022-11-08 14:51 | WPDHOMESLEEP ---
Sleep Study - Home Unattended Date of Study: 10/24/22 Ordering Provider: Galileo Barrios DO Interpreting Provider: Kathia Fung MD Home Sleep Study Type: Apnea Link Air Height: 1.75 m Weight: 195.045 kg Body Mass Index: 63.5 Neck Circumference (inches): 19 [place]: 7 Reason for Sleep Study Snoring, daytime hypersomnia and atrial fibrillation with RVR Sleep History Saran Pretty is a 57-year-old male with asthma, hypertension, hyperlipidemia, prediabetes, atrial fibrillation and history of tobacco use had a sleep study ordered by his commercial attache for evaluation of sleep apnea. 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 He denies awakening from sleep short of breath. He occasionally awakens at night with heartburn, belching or cough. He constantly snores loudly enough others complain. He frequently has trouble sleeping when he has a cold. He denies waking gasping for air throughout the night. He rarely has breathing problems at night observed by himself or others. He denies sweating excessively at night. He rarely has heart palpitations or irregular heartbeats during the night. He occasionally falls asleep during the day but never while driving. He denies sleep paralysis and cataplexy. He denies having trouble at school or work due to sleepiness. He rarely experiences vivid dreamlike scenes upon awakening or falling asleep. He denies feeling afraid of going to sleep. He rarely has nightmares. He occasionally remembers his dreams. He frequently has thoughts race through his mind. He rarely feels sad or depressed. He rarely has anxiety. He rarely has muscular tension. He occasionally notices parts of his body jerk. He rarely kicks during the night. He denies having crawling and aching feelings in his legs and denies having leg pain during the night. He rarely grinds his teeth during sleep and rarely awakens with morning jaw pain. He is occasionally bothered by pain during the day but rarely awakened by pain during. He occasionally wakes up feeling stiff in the morning. He rarely wakes up with sore or achy muscles. He rarely wakes up with pain in the neck, spine or other joints. He goes to bed at 11:00 p.m. on both weekdays and weekends. It takes him 15-20 minutes to fall asleep. He wakes up 3 times throughout the night to urinate and is able to fall back asleep within 5 minutes. He wakes up at 8:30 a.m. on both weekdays and weekends. He typically gets 5 hours of sleep per night. He will stay in bed for 5 minutes after waking up in the morning. He currently lives with his . He does not consume any caffeinated beverages within 2 hours of bedtime. He does not engage in physical exercise before bedtime. He will watch television before asleep. He will take naps in afternoon or the evening they refreshing. He consumes 32 oz of a caffeinated beverage per day. He is a former smoker. He denies alcohol and recreational drug use. [facility] Past Medical History Medical History Acute medial meniscus tear of right knee Annual physical exam Arthritis of knee, right Asthma Essential (primary) hypertension Hypertension Lung disease Nocturia Obesity Right knee injury Sprain of left foot Urinary frequency Surgical History Surgical History H/O: knee surgery History of incisional hernia repair Robo assisted incarcerated inc hernia repair w mesh on 05/10/22 History of laparoscopic cholecystectomy Family History Family History Father Hypertension Mother Hypertension Social History Social History Smoking packs per day: 1 Smoking cigarettes per day: 20.0 Years smoked: 3 Smoking pack-years: 3.00 Smoking status: Never smoker Tobacco type: cigarettes Smoking end date: 05/27/94 Alcohol
== END 2022-10-25 15:18 | disposition home or self-care (01) ==
LOC: ANHCSM 08:37
PROVIDERS: PCP Family Medicine; Visit Provider Internal Medicine Cardiovascular Disease
DX: G47.10 Hypersomnia, unspecified (principal); G47.33 Obstructive sleep apnea (adult) (pediatric)
CPT/HCPCS: 95806

== ENCOUNTER 2022-12-21 09:08 | Outpatient (CLI) | payer BC, SELFPAY ==
--- NOTE | 2022-12-31 21:23 | WPDSLEEPSTUD ---
Sleep Study Date of Study: 12/21/22 Ordering Provider: Galileo Barrios DO Interpreting Physician: Kathia Fung MD Sleep Study Type: BiPAP Titration Height: 1.75 m Weight: 204.117 kg Body Mass Index: 66.4 Neck Circumference (inches): 20 [place]: 7 Reason for Sleep Study * Home sleep test 10/24/22 using WatchPat with severe ARPAN, AHI 31.5; he presents for a titration Snoring, daytime hypersomnia and atrial fibrillation with RVR Sleep History Saran Pretty is a 57-year-old male with asthma, hypertension, hyperlipidemia, prediabetes, atrial fibrillation and history of tobacco use had a sleep study ordered by his wrapper off for evaluation of sleep apnea.? 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 He denies awakening from sleep short of breath.? He occasionally awakens at night with heartburn, belching or cough.? He constantly snores loudly enough others complain.? He frequently has trouble sleeping when he has a cold.? He denies waking gasping for air throughout the night.? He rarely has breathing problems at night observed by himself or others.? He denies sweating excessively at night.? He rarely has heart palpitations or irregular heartbeats during the night.? He occasionally falls asleep during the day but never while driving.? He denies sleep paralysis and cataplexy.? He denies having trouble at school or work due to sleepiness.? He rarely experiences vivid dreamlike scenes upon awakening or falling asleep.? He denies feeling afraid of going to sleep.? He rarely has nightmares.? He occasionally remembers his dreams.? He frequently has thoughts race through his mind.? He rarely feels sad or depressed.? He rarely has anxiety.? He rarely has muscular tension.? He occasionally notices parts of his body jerk.? He rarely kicks during the night.? He denies having crawling and aching feelings in his legs and denies having leg pain during the night.? He rarely grinds his teeth during sleep and rarely awakens with morning jaw pain.? He is occasionally bothered by pain during the day but rarely awakened by pain during.? He occasionally wakes up feeling stiff in the morning.? He rarely wakes up with sore or achy muscles.? He rarely wakes up with pain in the neck, spine or other joints.? He goes to bed at 11:00 p.m. on both weekdays and weekends.? It takes him 15-20 minutes to fall asleep.? He wakes up 3 times throughout the night to urinate and is able to fall back asleep within 5 minutes.? He wakes up at 8:30 a.m. on both weekdays and weekends.? He typically gets 5 hours of sleep per night.? He will stay in bed for 5 minutes after waking up in the morning.? He currently lives with his .? He does not consume any caffeinated beverages within 2 hours of bedtime.? He does not engage in physical exercise before bedtime.? He will watch television before asleep.? He will take naps in afternoon or the evening they refreshing.? He consumes 32 oz of a caffeinated beverage per day.? He is a former smoker.? He denies alcohol and recreational drug use. [facility] Past Medical History Medical History Acute medial meniscus tear of right knee Annual physical exam Arthritis of knee, right Asthma Essential (primary) hypertension Hypertension Lung disease Nocturia Obesity Right knee injury Sprain of left foot Urinary frequency Surgical History Surgical History H/O: knee surgery History of incisional hernia repair Robo assisted incarcerated inc hernia repair w mesh on 05/10/22 History of laparoscopic cholecystectomy Family History Family History Father Hypertension Mother Hypertension Social History Social History Smoking packs per day: 1 Smoking cigarettes per day: 20.0 Years smoked: 3 Smoking pack-years: 3.00 Smoking status: Never smo
[2022-12-31 21:27] VITALS: BMI 66.4
== END 2022-12-22 07:39 | disposition home or self-care (01) ==
LOC: ANHCSM 09:08
PROVIDERS: PCP Family Medicine; Visit Provider Internal Medicine Cardiovascular Disease
DX: G47.33 Obstructive sleep apnea (adult) (pediatric) (principal); I48.91 Unspecified atrial fibrillation; I10 Essential (primary) hypertension; J45.909 Unspecified asthma, uncomplicated; Z87.891 Personal history of nicotine dependence
CPT/HCPCS: 95811

== ENCOUNTER 2023-02-21 01:13 | Day surgery (SDC) | payer BC, SELFPAY ==
[2023-02-13 09:15] VITALS: BMI 66.5
[2023-02-21 07:17] VITALS: BP 183/122; PULSE 117; RESP 24; O2SAT 97; BMI 64.8
[2023-02-21] MEDS: LACTATED RINGERS 1,000 ML 150 ML IV CONT (07:30)
--- NOTE | 2023-02-21 07:53 | PM.HPGS ---
History of Present Illness History of Present Illness Consent: Risks, benefits, and alternatives have been discussed and questions answered. Patient agrees to proceed with procedure. Chief complaint: neoplasm screening Narrative: Saran Pretty is a 57 year old male Presents for screening colonoscopy. Patient was found to have adenomaous : Polyp at the time of previous colonoscopy in 2019. Patient's current weight appetite and bowel movements are normal. Patient denies abdominal pain. He has had no bleeding. Family history noncontributory. He reports 1 year ago had umbilical hernia repair. Review of Systems Review of Systems: Review of systems is noncontributory. [facility] Past Medical History Medical History (Updated 02/21/23 @ 07:54 by Saran Choe MD) Acute medial meniscus tear of right knee Annual physical exam Arthritis of knee, right Essential (primary) hypertension Hypertension Lung disease Nocturia Obesity Obstructive sleep apnea Right knee injury Sprain of left foot Urinary frequency Surgical History Surgical History H/O: knee surgery History of incisional hernia repair Robo assisted incarcerated inc hernia repair w mesh on 05/10/22 History of laparoscopic cholecystectomy Family History Family History Father Hypertension Mother Hypertension Social History Social History Smoking packs per day: 1 Smoking cigarettes per day: 20.0 Years smoked: 3 Smoking pack-years: 3.00 Smoking status: Former smoker Tobacco type: cigarettes Smoking end date: 05/27/94 Alcohol intake: never Substance use: never Substance use type: does not use Lack of Transportation: No Lack of Food: Never True Current Housing: I Have Housing Concerned About Future Housing: No Difficulty Paying Gas/Electric Bills: No Difficulty Paying for Meds: No Currently Unemployed: No Education: High School Diploma/GED Difficulty w/ Childcare or Family Care: No Living arrangements: with family Occupation/Education: occupation Gender identity (if verbalized by the patient): Male Sexual Orientation (if Verbalized by the Patient): Straight or Heterosexual Spiritual care concerns: No Meds Home Medications and Allergies Home Medications Medication Instructions Recorded Confirmed Type hydrochlorothiazide 12.5 mg tablet 12.5 mg PO DAILY #90 tabs 05/07/22 02/13/23 Rx apixaban 5 mg tablet (Eliquis) 5 mg PO Q12HR #180 tabs 09/27/22 02/13/23 Rx atorvastatin 40 mg tablet 40 mg PO DAILY #90 tabs 09/27/22 02/13/23 Rx furosemide 40 mg tablet 40 mg PO DAILY #90 tabs 09/27/22 02/13/23 Rx sotalol 120 mg tablet 120 mg PO Q12H #180 tabs 09/27/22 02/13/23 Rx lisinopril 40 mg tablet 40 mg PO DAILY #90 tabs 10/12/22 02/13/23 Rx tramadol 50 mg tablet 50 mg PO Q6H PRN pain #20 tabs 12/07/22 02/13/23 Rx diltiazem HCl 120 mg capsule,24 120 mg PO DAILY #90 caps 01/08/23 02/13/23 Rx hr,extended release Allergies Allergy/AdvReac Type Severity Reaction Status Date / Time No Known Allergies Allergy Verified 02/13/23 09:16 Vital Signs Vital Signs - 24 hr 02/21/23 07:17 Pulse Rate 117 H Respiratory Rate 24 H Blood Pressure 183/122 H Pulse Oximetry 97 Oxygen Delivery Room Air Exam Narrative: Physical exam reveals patient to be alert. Vital signs stable. HEENT exam is unremarkable. Patient is anicteric. Lungs are clear to auscultation and to percussion. Heart is without murmur or extra sounds. Abdominal exam is obese. Bowel sounds are present soft nontender with no organomegaly. Digital external rectal exam is normal. Assessment and Plan Assessment and plan (1) History of colon polyps: Code(s): Z86.010 - Personal history of colonic polyps Status: Acute Assessment and Plan:
--- NOTE | 2023-02-21 08:29 | WPDANESEPPF ---
Anes - Initial Pre Proc Eval Procedure: Operation Date: 02/21/23 08:30 Proposed Procedures p Screening Colonoscopy - Saran Choe MD Date/Time: 02/21/23 08:29 Surgeon: Saran Choe MD Pre Op Diagnosis: neoplasm screening Patient Data Age: 57 Gender: M Height: 1.75 m Weight: 199.3 kg Last Vital Signs Pulse 117 H 02/21/23 07:17 Resp 24 H 02/21/23 07:17 BP 183/122 H 02/21/23 07:17 Pulse Ox 97 02/21/23 07:17 O2 Del Method Room Air 02/21/23 07:17 Allergies Allergy/AdvReac Type Severity Reaction Status Date / Time No Known Allergies Allergy Verified 02/13/23 09:16 Home Medications Medication Instructions Recorded Confirmed Type hydrochlorothiazide 12.5 mg tablet 12.5 mg PO DAILY #90 tabs 05/07/22 02/13/23 Rx apixaban 5 mg tablet (Eliquis) 5 mg PO Q12HR #180 tabs 09/27/22 02/13/23 Rx atorvastatin 40 mg tablet 40 mg PO DAILY #90 tabs 09/27/22 02/13/23 Rx furosemide 40 mg tablet 40 mg PO DAILY #90 tabs 09/27/22 02/13/23 Rx sotalol 120 mg tablet 120 mg PO Q12H #180 tabs 09/27/22 02/13/23 Rx lisinopril 40 mg tablet 40 mg PO DAILY #90 tabs 10/12/22 02/13/23 Rx tramadol 50 mg tablet 50 mg PO Q6H PRN pain #20 tabs 12/07/22 02/13/23 Rx diltiazem HCl 120 mg capsule,24 120 mg PO DAILY #90 caps 01/08/23 02/13/23 Rx hr,extended release Patient hx anesthesia problems: none Family hx anesthesia problems: none Results Review: All pre-operative results and documents have been reviewed as part of the pre-operative evaluation. [facility] Past Medical History Medical History (Updated 02/21/23 @ 07:54 by Saran Choe MD) Acute medial meniscus tear of right knee Annual physical exam Arthritis of knee, right Essential (primary) hypertension Hypertension Lung disease Nocturia Obesity Obstructive sleep apnea Right knee injury Sprain of left foot Urinary frequency Surgical History Surgical History H/O: knee surgery History of incisional hernia repair [facility] assisted incarcerated inc hernia repair w mesh on 05/10/22 History of laparoscopic cholecystectomy Family History Family History Father Hypertension Mother Hypertension Social History Social History Smoking packs per day: 1 Smoking cigarettes per day: 20.0 Years smoked: 3 Smoking pack-years: 3.00 Smoking status: Former smoker Tobacco type: cigarettes Smoking end date: 05/27/94 Alcohol intake: never Substance use: never Substance use type: does not use Lack of Transportation: No Lack of Food: Never True Current Housing: I Have Housing Concerned About Future Housing: No Difficulty Paying Gas/Electric Bills: No Difficulty Paying for Meds: No Currently Unemployed: No Education: High School Diploma/GED Difficulty w/ Childcare or Family Care: No Living arrangements: with family Occupation/Education: occupation Gender identity (if verbalized by the patient): Male Sexual Orientation (if Verbalized by the Patient): Straight or Heterosexual Spiritual care concerns: No Anes - Eval Final PreProcedure Day of Procedure 02/21/23 08:29 Patient weight: super morbidly obese (super super) Heart: irregular rhythm Lungs: clear to auscultation Airway: Mallampati scale class III Neurological: alert and oriented Last oral intake: >/= 8 hours ASA classification: IV Emergent: no Anesthetic plan: proceed Anesthesia type and monitoring: general GIVS and standard monitoring Results Review: All pre-operative results and documents have been reviewed as part of the pre-operative evaluation. Informed Consent: The patient's anesthetic plan and its attendant risks and benefits were discussed with the patient/family/POA. Questions were solicited and answers provided to the satisfaction of the patient/family/POA.
[2023-02-21] MEDS: SIMETHICONE ORAL SUSPENSION 20 MG/0.3 ML 30 ML BOTTLE 0.6 ML IRRIGATION (08:36)
[2023-02-21] MEDS: KETAMINE HCL (*CRX) 500 MG/10 ML VIAL 50 MG IV PUSH (08:43)
--- NOTE | 2023-02-21 08:44 | SUR.OPER ---
DANI Jones administered 50mg Ketamine during Screening Colonoscopy as charted per MAR.
[2023-02-21 08:48] VITALS: BP 117/76; PULSE 62; RESP 21; O2SAT 98
[2023-02-21 08:58] VITALS: BP 136/92; PULSE 66; RESP 16; O2SAT 97
[2023-02-21 09:08] VITALS: BP 133/91; PULSE 60; RESP 21; O2SAT 99
== END 2023-02-21 09:16 | disposition home or self-care (01) ==
PROVIDERS: PCP Family Medicine; Visit Provider Internal Medicine Gastroenterology
PROC: 0DJD8ZZ Inspection of Lower Intestinal Tract, Via Natural or Artificial Opening Endoscopic (ICD-10-PCS; CPT 45378; principal; 2023-02-21 08:30)
DX: Z12.11 Encounter for screening for malignant neoplasm of colon (principal); K57.30 Diverticulosis of large intestine without perforation or abscess without bleeding; K64.8 Other hemorrhoids; Z86.010 Personal history of colon polyps; I10 Essential (primary) hypertension; G47.33 Obstructive sleep apnea (adult) (pediatric); Z87.891 Personal history of nicotine dependence; Z79.01 Long term (current) use of anticoagulants; E66.01 Morbid (severe) obesity due to excess calories; Z68.44 Body mass index [BMI] 60.0-69.9, adult
CPT/HCPCS: 45378; J2704; J7120